=== PATIENT | male | born 1955 | race Caucasian/White ===

== ENCOUNTER 2020-08-08 15:14 | Inpatient (IN) ==
[2020-08-08] MEDS ORDERED: ONDANSETRON 4 MG/2 ML VIAL IV PRN ×2 (15:34→17:16)
[2020-08-08] MEDS ORDERED: METOPROLOL TARTRATE 5 MG/5 ML VIAL IV STA (15:34)
[2020-08-08] MEDS ORDERED: ENOXAPARIN 100 MG/ML SYRINGE SUBCUT STA (15:34)
[2020-08-08] MEDS ORDERED: ASPIRIN 325 MG TABLET PO STA (15:34)
[2020-08-08] MEDS ORDERED: MORPHINE 4 MG/1 ML VIAL IV PRN (15:34)
[2020-08-08] MEDS ORDERED: NITROGLYCERIN 2% OINT 1 INCH/GM PACK TOP STA (15:34)
[2020-08-08 15:52] LABS: Basophils % 0.2 % (0.0-0.8); Eosinophils # 0.1 10*3/uL (0.0-0.87); Eosinophils % 1.9 % (0.00-10.9); Hematocrit 36.8 VOL% (42.0-52.0); Hemoglobin 12.2 GM/DL (14.0-18.0); Immature Granulocytes % 0.3 %; Immature Granulocytes Absolute 0.02 #; Lymphocytes # 1.2 10*3/uL (1.4-4.0); Mean Corpuscular HGB Conc 33.2 GM/DL (32-36); Mean Corpuscular Volume 87.8 FL (87-102); Mean Platelet Volume 10.5 FL (9.6-12.0); Monocytes % 4.3 % (1.7-12.7); Neutrophils % 73.3 % (38.7-73.9); Platelet Count 90 T/CUMM (130-400); Red Blood Count 4.19 MC/CUMM (3.8-5.5); Red Cell Distribution Width 15.3 % (9.3-17.3); White Blood Count 5.9 T/CUMM (4-12)
[2020-08-08 16:12] LABS: Alanine Aminotransferase 211 U/L (16-61); Albumin 3.5 G/DL (3.4-5.0); Alkaline Phosphatase 207 U/L (45-117); Aspartate Amino Transferase 121 U/L (0-37); Bilirubin,Total < 0.39 MG/DL (0.2-1.0); Blood Urea Nitrogen 23 MG/DL (7-18); Calcium 9.1 MG/DL (8.5-10.1); Estimated Glom Filtration Rate 105 ML/MIN; Glucose 206 MG/DL (74-106); Osmolality,Calculated 284.7 MOS/KG (273-304); Total Protein 7.7 G/DL (6.4-8.3)
[2020-08-08 16:31] LABS: INR 0.9; Partial Thromboplastin Time 21.9 SECS (23.9-33.8)
[2020-08-08 16:41] LABS: Platelet Estimate Decreased
[2020-08-08] MEDS ORDERED: GLUCAGON 1 MG VIAL IM PRN (17:16)
[2020-08-08] MEDS ORDERED: DEXTROSE 50% 25 GM/50 ML VIAL IV PRN (17:16)
[2020-08-08] MEDS ORDERED: ACETAMINOPHEN 325 MG TABLET PO PRN (17:16)
[2020-08-08] MEDS: INSULIN LISPRO 100 UNIT/ML SUBCUT SCH ×2 (17:37→20:42)
[2020-08-08] MEDS: SODIUM CHLORIDE 0.9% 1,000 ML IV SCH (17:52)
[2020-08-08] MEDS: DOCUSATE SODIUM 100 MG CAPSULE PO SCH (20:42)
[2020-08-08] MEDS ORDERED: ALBUTEROL/IPRATROPIUM 3 ML NEB RESP TX PRN (23:01)
[2020-08-08] MEDS ORDERED: METOPROLOL TARTRATE 25 MG TABLET PO ONE (23:01)
[2020-08-09] MEDS: SODIUM CHLORIDE 0.9% 1,000 ML IV SCH ×2 (02:33→11:30)
[2020-08-09 05:58] LABS: Basophils % 0.3 % (0.0-0.8); Eosinophils # 0.1 10*3/uL (0.0-0.87); Eosinophils % 0.5 % (0.00-10.9); Hematocrit 36.1 VOL% (42.0-52.0); Immature Granulocytes % 0.6 %; Immature Granulocytes Absolute 0.07 #; Lymphocytes # 1.2 10*3/uL (1.4-4.0); Lymphocytes % 10.3 % (21.2-54.2); Mean Corpuscular HGB Conc 33.2 GM/DL (32-36); Mean Corpuscular Volume 87.4 FL (87-102); Mean Platelet Volume 10.9 FL (9.6-12.0); Monocytes % 4.6 % (1.7-12.7); Neutrophils % 83.7 % (38.7-73.9); Platelet Count 265 T/CUMM (130-400); Red Blood Count 4.13 MC/CUMM (3.8-5.5); Red Cell Distribution Width 15.3 % (9.3-17.3); White Blood Count 11.8 T/CUMM (4-12)
[2020-08-09 06:20] LABS: Albumin 3.1 G/DL (3.4-5.0); Calcium 8.4 MG/DL (8.5-10.1); Osmolality,Calculated 286.7 MOS/KG (273-304); Total Protein 6.8 G/DL (6.4-8.3)
[2020-08-09 07:09] LABS: Hepatitis B Core IgM Quant 0.09 Index; Hepatitis B Surface Ag Quant < 0.10 Index; Hepatitis B Surface Ag Result Negative (Negative); Hepatitis C Virus Ab Quant 0.02 Index; Hepatitis C Virus Ab Result Negative (Negative)
[2020-08-09] MEDS ORDERED: diphenhydrAMINE CAP 25 MG CAPSULE PO ONE (08:16)
[2020-08-09] MEDS ORDERED: DIAZEPAM 5 MG TABLET PO ONE (08:16)
[2020-08-09] MEDS ORDERED: HEPARIN/NACL 0.9% 2 UNITS/ML 1,000 ML IV ONE (08:24)
[2020-08-09] MEDS ORDERED: LIDOCAINE 1% 20 ML VIAL ONE (08:24)
[2020-08-09] MEDS ORDERED: METOPROLOL TARTRATE 25 MG TABLET PO SCH (09:00)
[2020-08-09] MEDS: ASPIRIN EC 81 MG TABLET PO SCH (09:00)
[2020-08-09] MEDS: PANTOPRAZOLE 40 MG TABLET PO SCH (09:00)
[2020-08-09] MEDS: INSULIN LISPRO 100 UNIT/ML SUBCUT SCH ×4 (09:00→20:39)
[2020-08-09] MEDS: DOCUSATE SODIUM 100 MG CAPSULE PO SCH ×2 (09:01→20:39)
[2020-08-09 09:14] LABS: % Iron Saturation 9.5 % (18-50)
[2020-08-09] MEDS ORDERED: MIDAZOLAM 2 MG/2 ML VIAL ONE (09:19)
[2020-08-09] MEDS ORDERED: fentaNYL 100 MCG/2 ML VIAL ONE (09:19)
[2020-08-09] MEDS ORDERED: MORPHINE 4 MG/1 ML VIAL IV PRN (10:00)
[2020-08-09] MEDS ORDERED: ACETAMINOPHEN 325 MG TABLET PO PRN (10:00)
[2020-08-09] MEDS ORDERED: ZALEPLON 5 MG CAPSULE PO PRN (10:00)
[2020-08-09] MEDS ORDERED: NITROGLYCERIN DRIP 50 MG/250 ML BOTTLE IV PRN (10:04)
[2020-08-09] MEDS: POTASSIUM CHLORIDE 20 MEQ TABLET PO SCH ×2 (11:00→20:39)
[2020-08-09] MEDS ORDERED: DEXTROSE 50% 25 GM/50 ML VIAL IV PRN (12:33)
[2020-08-09] MEDS ORDERED: GLUCAGON 1 MG VIAL IM PRN (12:33)
[2020-08-09] MEDS ORDERED: METOPROLOL TARTRATE 5 MG/5 ML VIAL IV PRN (13:41)
[2020-08-09] MEDS: INSULIN GLARGINE 100 UNIT/ML SUBCUT SCH (14:15)
[2020-08-09] MEDS: FUROSEMIDE INJ 100 MG in SODIUM CHLORIDE 0.9% 90 ML IV SCH (14:45)
[2020-08-09 14:59] LABS: Bilirubin,Urine Negative (Negative); Blood, Urine Small mg/dL (Negative); Glucose,Urine (UA) >=500 mg/dL (Negative); Hyaline Casts,Urine 1 /LPF (0-3); Ketones,Urine 20 mg/dL (Negative); Mucus,Urine Occasional /LPF (Occasional); Nitrite,Urine Negative (Negative); Protein,Urine 30 MG/DL; RBC,Urine 3 /HPF (0-4); Squamous Epithelial Cell,Urine Occasional /HPF (0-10); Urine Appearance CLEAR (Clear); Urine Color Yellow (Yellow); Urine Specific Gravity 1.032 (1.001-1.035); Urine Urobilinogen < 2.0 EU/DL (0.2-1.0); WBC,Urine <1 /HPF (0-6)
[2020-08-09] MEDS: METOPROLOL TARTRATE 5 MG/5 ML VIAL IV SCH ×3 (17:07→17:40)
[2020-08-09] MEDS ORDERED: HEPARIN 5,000 UNIT/1 ML VIAL IV ONE (17:12)
[2020-08-09] MEDS: carvediloL 6.25 MG TABLET PO SCH ×2 (17:15→20:39)
[2020-08-09] MEDS ORDERED: DIAZEPAM 5 MG TABLET PO PRN (17:16)
[2020-08-09] MEDS: HEPARIN DRIP 25,000 UNITS/500 ML PREMIX IV SCH (17:40)
[2020-08-09] MEDS: SACUBITRIL/VALSARTAN 49-51 MG TABLET PO SCH (20:39)
[2020-08-09] MEDS: MAGNESIUM OXIDE 400 MG TABLET PO SCH (20:40)
[2020-08-09] MEDS ORDERED: carvediloL 3.125 MG TABLET PO SCH (21:00)
[2020-08-09] MEDS ORDERED: ROSUVASTATIN 20 MG TABLET PO SCH (21:00)
[2020-08-10] MEDS: SODIUM CHLORIDE 0.9% 1,000 ML IV SCH ×2 (05:30→07:30)
[2020-08-10] MEDS: FUROSEMIDE INJ 100 MG in SODIUM CHLORIDE 0.9% 90 ML IV SCH (05:56)
[2020-08-10 06:50] LABS: Basophils # 0.1 10*3/uL (0.0-0.2); Basophils % 0.5 % (0.0-0.8); Eosinophils # 0.1 10*3/uL (0.0-0.87); Eosinophils % 0.5 % (0.00-10.9); Hemoglobin 13.2 GM/DL (14.0-18.0); Immature Granulocytes % 0.5 %; Immature Granulocytes Absolute 0.06 #; Lymphocytes # 1.1 10*3/uL (1.4-4.0); Lymphocytes % 9.8 % (21.2-54.2); Mean Corpuscular HGB Conc 33.8 GM/DL (32-36); Mean Corpuscular Volume 86.5 FL (87-102); Mean Platelet Volume 9.9 FL (9.6-12.0); Monocytes % 6.3 % (1.7-12.7); Neutrophils % 82.4 % (38.7-73.9); Platelet Count 241 T/CUMM (130-400); Red Blood Count 4.51 MC/CUMM (3.8-5.5); Red Cell Distribution Width 15.1 % (9.3-17.3); White Blood Count 11.1 T/CUMM (4-12)
[2020-08-10 07:11] LABS: Albumin 2.5 G/DL (3.4-5.0); Bilirubin,Total 0.6 MG/DL (0.2-1.0); Calcium 8.2 MG/DL (8.5-10.1); Osmolality,Calculated 279.5 MOS/KG (273-304); Total Protein 6.6 G/DL (6.4-8.3)
[2020-08-10] MEDS ORDERED: POTASSIUM CHLORIDE 20 MEQ TABLET PO ONE ×2 (07:17→08:00)
[2020-08-10] MEDS: INSULIN GLARGINE 100 UNIT/ML SUBCUT SCH (08:00)
[2020-08-10] MEDS: INSULIN LISPRO 100 UNIT/ML SUBCUT SCH ×4 (08:00→21:09)
[2020-08-10] MEDS: POTASSIUM CHLORIDE 20 MEQ TABLET PO SCH ×2 (08:45→21:09)
[2020-08-10] MEDS: SACUBITRIL/VALSARTAN 49-51 MG TABLET PO SCH ×2 (08:45→21:09)
[2020-08-10] MEDS: PANTOPRAZOLE 40 MG TABLET PO SCH (08:45)
[2020-08-10] MEDS: DOCUSATE SODIUM 100 MG CAPSULE PO SCH ×2 (08:45→21:09)
[2020-08-10] MEDS: carvediloL 6.25 MG TABLET PO SCH ×2 (08:45→21:09)
[2020-08-10] MEDS: MAGNESIUM OXIDE 400 MG TABLET PO SCH ×2 (08:45→21:09)
[2020-08-10] MEDS: ASPIRIN EC 81 MG TABLET PO SCH (08:45)
[2020-08-10] MEDS ORDERED: FUROSEMIDE 40 MG TABLET PO SCH (09:00)
[2020-08-10] MEDS: HEPARIN DRIP 25,000 UNITS/500 ML PREMIX IV SCH (17:30)
[2020-08-10] MEDS ORDERED: HEPARIN 5,000 UNIT/1 ML VIAL IV PRN (18:10)
[2020-08-11 04:11] LABS: Basophils % 0.5 % (0.0-0.8); Eosinophils # 0.3 10*3/uL (0.0-0.87); Eosinophils % 3.7 % (0.00-10.9); Hematocrit 35.3 VOL% (42.0-52.0); Hemoglobin 11.8 GM/DL (14.0-18.0); Immature Granulocytes % 0.5 %; Immature Granulocytes Absolute 0.04 #; Lymphocytes # 0.9 10*3/uL (1.4-4.0); Lymphocytes % 12.3 % (21.2-54.2); Mean Corpuscular HGB Conc 33.4 GM/DL (32-36); Mean Corpuscular Volume 87.4 FL (87-102); Mean Platelet Volume 10.6 FL (9.6-12.0); Platelet Count 235 T/CUMM (130-400); Red Blood Count 4.04 MC/CUMM (3.8-5.5); Red Cell Distribution Width 14.7 % (9.3-17.3); White Blood Count 7.3 T/CUMM (4-12)
[2020-08-11 04:30] LABS: Osmolality,Calculated 279.7 MOS/KG (273-304)
[2020-08-11 04:35] LABS: Albumin 2.3 G/DL (3.4-5.0); Bilirubin,Total 0.7 MG/DL (0.2-1.0); Calcium 8.1 MG/DL (8.5-10.1); Osmolality,Calculated 281.5 MOS/KG (273-304); Total Protein 6.1 G/DL (6.4-8.3)
[2020-08-11] MEDS: SODIUM CHLORIDE 0.9% 1,000 ML IV SCH ×3 (05:22→15:28)
[2020-08-11 05:34] LABS: ABG Base Excess -0.7 MMOL/L (-2.5-2.5); ABG HCO3 23.8 MMOL/L (20-26); ABG Oxygen Saturation 96.1 % (95-100); ABG PH 7.444 (7.35-7.45); ABG PO2 76.9 MM HG (80-95); ABG TCO2 19.7 MMOL/L (23-27)
[2020-08-11] MEDS ORDERED: FUROSEMIDE 40 MG/4 ML VIAL IV ONE (07:49)
[2020-08-11] MEDS: INSULIN LISPRO 100 UNIT/ML SUBCUT SCH ×4 (07:58→20:57)
[2020-08-11] MEDS: INSULIN GLARGINE 100 UNIT/ML SUBCUT SCH (08:27)
[2020-08-11] MEDS: SPIRONOLACTONE 25 MG TABLET PO SCH (08:28)
[2020-08-11] MEDS: DOCUSATE SODIUM 100 MG CAPSULE PO SCH ×2 (08:32→20:57)
[2020-08-11] MEDS: POTASSIUM CHLORIDE 20 MEQ TABLET PO SCH ×2 (08:32→20:57)
[2020-08-11] MEDS: SACUBITRIL/VALSARTAN 49-51 MG TABLET PO SCH ×2 (08:32→20:57)
[2020-08-11] MEDS: carvediloL 6.25 MG TABLET PO SCH ×2 (08:32→20:57)
[2020-08-11] MEDS: CHLORHEXIDINE 0.12% ORAL RINSE 60 ML BOTTLE SWISH/SPIT SCH ×2 (08:32→20:57)
[2020-08-11] MEDS: MAGNESIUM OXIDE 400 MG TABLET PO SCH ×2 (08:32→20:57)
[2020-08-11] MEDS: ASPIRIN EC 81 MG TABLET PO SCH (08:32)
[2020-08-11] MEDS: PANTOPRAZOLE 40 MG TABLET PO SCH (08:32)
[2020-08-11] MEDS: BENZONATATE 100 MG CAPSULE PO SCH ×2 (08:35→20:57)
[2020-08-11] MEDS: HEPARIN DRIP 25,000 UNITS/500 ML PREMIX IV SCH ×2 (12:13→19:00)
[2020-08-11] MEDS: CHLORHEXIDINE 4% SOLN 118 ML BOTTLE TOP SCH ×2 (15:27→20:56)
[2020-08-12] MEDS: SODIUM CHLORIDE 0.9% 1,000 ML IV SCH ×2 (00:25→19:41)
[2020-08-12 03:13] LABS: Basophils % 0.5 % (0.0-0.8); Eosinophils # 0.5 10*3/uL (0.0-0.87); Eosinophils % 7.4 % (0.00-10.9); Hematocrit 38.1 VOL% (42.0-52.0); Hemoglobin 12.5 GM/DL (14.0-18.0); Immature Granulocytes % 0.5 %; Immature Granulocytes Absolute 0.03 #; Lymphocytes # 1.3 10*3/uL (1.4-4.0); Mean Corpuscular HGB Conc 32.8 GM/DL (32-36); Mean Corpuscular Volume 87.6 FL (87-102); Mean Platelet Volume 10.3 FL (9.6-12.0); Monocytes % 8.5 % (1.7-12.7); Neutrophils % 62.1 % (38.7-73.9); Platelet Count 271 T/CUMM (130-400); Red Blood Count 4.35 MC/CUMM (3.8-5.5); Red Cell Distribution Width 14.6 % (9.3-17.3); White Blood Count 6.4 T/CUMM (4-12)
[2020-08-12 03:46] LABS: Albumin 2.3 G/DL (3.4-5.0); Bilirubin,Total 0.7 MG/DL (0.2-1.0); Calcium 8.3 MG/DL (8.5-10.1); Osmolality,Calculated 291.8 MOS/KG (273-304); Total Protein 6.2 G/DL (6.4-8.3)
[2020-08-12] MEDS: CHLORHEXIDINE 4% SOLN 118 ML BOTTLE TOP SCH (04:37)
[2020-08-12] MEDS ORDERED: PAPAVERINE 60 MG/2 ML VIAL ONE (04:55)
[2020-08-12] MEDS ORDERED: VANCOMYCIN 1,000 MG VIAL ONE (04:55)
[2020-08-12] MEDS ORDERED: VANCOMYCIN 500 MG VIAL ONE (04:55)
[2020-08-12] MEDS ORDERED: CEFUROXIME INJ 1,500 MG in SYRINGE 1 EACH IV ONE (05:00)
[2020-08-12] MEDS ORDERED: MIDAZOLAM 10 MG/2 ML VIAL ONE ×2 (06:12→06:13)
[2020-08-12] MEDS ORDERED: SUFentanil 250 MCG/5 ML AMP ONE (06:12)
[2020-08-12] MEDS ORDERED: HEPARIN/NACL 0.9% 2 UNITS/ML 500 ML IV ONE ×3 (06:13→13:50)
[2020-08-12 07:59] LABS: ABG Base Excess -1.7 MMOL/L (-2.5-2.5); ABG Oxygen Saturation 99.3 % (95-100); ABG PH 7.404 (7.35-7.45); ABG TCO2 19.9 MMOL/L (23-27); Glucose Heart Surgery 190 MG/DL (74-106); Hematocrit Heart Surgery 37.9 PERCENT (42-52); Hemoglobin Heart Surgery 12.3 G/DL (14.0-18.0); Ionized Calcium Arterial 1.11 MMOL/L (1.21-1.46); PH Patient Temp Arterial 7.404; Patient Temperature 37 CELCIUS; Potassium Heart/CVR 4.3 MMOL/L (3.5-5.1); Sodium Heart/CVR 140 MMOL/L (135-145)
[2020-08-12 08:08] LABS: Bilirubin,Urine Negative (Negative); Blood, Urine Large mg/dL (Negative); Glucose,Urine (UA) 50 mg/dL (Negative); Hyaline Casts,Urine 3 /LPF (0-3); Ketones,Urine 5 mg/dL (Negative); Mucus,Urine Occasional /LPF (Occasional); Nitrite,Urine Negative (Negative); Protein,Urine 100 MG/DL; RBC,Urine 994 /HPF (0-4); Squamous Epithelial Cell,Urine Occasional /HPF (0-10); Urine Appearance Slightly Hazy (Clear); Urine Color Yellow (Yellow); Urine Specific Gravity 1.017 (1.001-1.035); Urine Urobilinogen < 2.0 EU/DL (0.2-1.0); WBC,Urine 33 /HPF (0-6)
[2020-08-12] MEDS ORDERED: NITROPRUSSIDE 50 MG/2 ML VIAL ONE (08:34)
[2020-08-12] MEDS ORDERED: POTASSIUM CHLORIDE RIDER 100 ML IV ONE (08:34)
[2020-08-12] MEDS ORDERED: PHENYLEPHRINE DRIP 40 MG/250 ML PREMIX IV ONE (08:34)
[2020-08-12] MEDS ORDERED: ATROPINE 1 MG/10 ML SYRINGE ONE (08:35)
[2020-08-12] MEDS ORDERED: LIDOCAINE 100 MG/5 ML SYRINGE ONE (08:35)
[2020-08-12] MEDS ORDERED: EPINEPHrine 1 MG/10 ML SYRINGE ONE ×2 (08:35→11:43)
[2020-08-12] MEDS ORDERED: ALBUMIN 5% 12.5 GM/250 ML VIAL IV ONE ×2 (08:59)
[2020-08-12 09:13] LABS: Hematocrit Heart Surgery 29.5 PERCENT (42-52); Hemoglobin Heart Surgery 9.5 G/DL (14.0-18.0); PCO2 Patient Temp Venous 35.9 MM HG; PH Patient Temp Venous 7.448; Potassium Heart/CVR 4.7 MMOL/L (3.5-5.1); VBG Base Excess 1.1 MEQ/L (0-4); VBG HCO3 24.9 MEQ/L (24-28); VBG Oxygen Saturation 71.3 %; VBG PCO2 37.7 MMHG (41-51); VBG PH 7.433; VBG PO2 36.4 MMHG (17-40)
[2020-08-12 09:50] LABS: Hematocrit Heart Surgery 32.8 PERCENT (42-52); Hemoglobin Heart Surgery 10.6 G/DL (14.0-18.0); PCO2 Patient Temp Venous 33.5 MM HG; PH Patient Temp Venous 7.458; PO2 Patient Temp Venous 34.1 MM HG; Potassium Heart/CVR 4.3 MMOL/L (3.5-5.1); VBG Base Excess 0.4 MEQ/L (0-4); VBG HCO3 24.3 MEQ/L (24-28); VBG PCO2 36.9 MMHG (41-51); VBG PH 7.429; VBG PO2 39.3 MMHG (17-40)
[2020-08-12 10:18] LABS: Hematocrit Heart Surgery 33.2 PERCENT (42-52); Hemoglobin Heart Surgery 10.7 G/DL (14.0-18.0); PCO2 Patient Temp Venous 35.6 MM HG; PH Patient Temp Venous 7.455; Potassium Heart/CVR 4.7 MMOL/L (3.5-5.1); VBG Base Excess 1.4 MEQ/L (0-4); VBG HCO3 25.1 MEQ/L (24-28); VBG Oxygen Saturation 69.6 %; VBG PCO2 35.6 MMHG (41-51); VBG PH 7.455
[2020-08-12 11:05] LABS: Hematocrit Heart Surgery 31.8 PERCENT (42-52); Hemoglobin Heart Surgery 10.3 G/DL (14.0-18.0); PCO2 Patient Temp Venous 35.3 MM HG; PH Patient Temp Venous 7.437; PO2 Patient Temp Venous 30.9 MM HG; Potassium Heart/CVR 4.1 MMOL/L (3.5-5.1); VBG HCO3 23.8 MEQ/L (24-28); VBG Oxygen Saturation 60.2 %; VBG PCO2 35.3 MMHG (41-51); VBG PH 7.437; VBG PO2 30.9 MMHG (17-40)
[2020-08-12] MEDS ORDERED: PROTAMINE SULFATE 250 MG/25 ML VIAL IV ONE (11:42)
[2020-08-12] MEDS ORDERED: SODIUM BICARBONATE 50 MEQ/50 ML VIAL IV ONE (11:42)
[2020-08-12] MEDS ORDERED: LIDOCAINE 2% 5 ML VIAL ONE ×2 (11:42→13:49)
[2020-08-12] MEDS ORDERED: MANNITOL 100 GM/500 ML BAG IV ONE (11:42)
[2020-08-12] MEDS ORDERED: ALBUMIN 25% 25 GM/100 ML VIAL IV ONE (11:42)
[2020-08-12] MEDS ORDERED: DEXTROSE 5% KCL 20 MEQ 20 MEQ/1,000 ML BAG IV ONE (11:42)
[2020-08-12] MEDS ORDERED: HEPARIN 10,000 UNIT/10 ML VIAL ONE (11:43)
[2020-08-12] MEDS ORDERED: PROTAMINE SULFATE 50 MG/5 ML VIAL IV ONE (11:43)
[2020-08-12] MEDS ORDERED: methylPREDNISolone SOD SUC 1,000 MG/8 ML VIAL ONE (11:43)
[2020-08-12] MEDS ORDERED: MAGNESIUM SULFATE 5 GM/10 ML VIAL IV ONE (11:43)
[2020-08-12] MEDS ORDERED: FUROSEMIDE 20 MG/2 ML VIAL ONE (11:43)
[2020-08-12 11:56] LABS: ABG Base Excess 0.8 MMOL/L (-2.5-2.5); ABG HCO3 25.2 MMOL/L (20-26); ABG Oxygen Saturation 98.8 % (95-100); ABG PCO2 39.5 MM HG (35-48); ABG PH 7.415 (7.35-7.45); ABG TCO2 22.9 MMOL/L (23-27); Glucose Heart Surgery 254 MG/DL (74-106); Hematocrit Heart Surgery 32.2 PERCENT (42-52); Hemoglobin Heart Surgery 10.4 G/DL (14.0-18.0); Ionized Calcium Arterial 1.33 MMOL/L (1.21-1.46); PCO2 Patient Temp Arterial 39.5 MMHG; PH Patient Temp Arterial 7.415; Patient Temperature 37 CELCIUS; Potassium Heart/CVR 3.5 MMOL/L (3.5-5.1); Sodium Heart/CVR 144 MMOL/L (135-145)
[2020-08-12] MEDS ORDERED: AMIODARONE 450 MG/9 ML VIAL IV ONE ×2 (12:17→22:19)
[2020-08-12] MEDS ORDERED: DOBUTamine 500 MG/250 ML PREMIX IV ONE ×2 (12:17→13:49)
[2020-08-12] MEDS ORDERED: EPINEPHrine 1 MG/ML VIAL ONE ×2 (12:31→13:51)
[2020-08-12] MEDS: LACTATED RINGERS 1,000 ML IV PRN ×3 (13:00→16:00)
[2020-08-12] MEDS: ALBUMIN 5% 12.5 GM in PREMIX 1 EACH IV PRN ×3 (13:00→17:32)
[2020-08-12] MEDS: SODIUM CHLORIDE 0.45% 1,000 ML IV SCH ×2 (13:00→15:04)
[2020-08-12] MEDS: DOBUTamine 500 MG/250 ML PREMIX IV PRN (13:00)
[2020-08-12] MEDS: PHENYLEPHRINE DRIP 40 MG/250 ML PREMIX IV PRN ×3 (13:00→20:46)
[2020-08-12] MEDS ORDERED: NITROPRUSSIDE 100 MG in DEXTROSE 5% 250 ML IV PRN (13:08)
[2020-08-12] MEDS ORDERED: MORPHINE 10 MG/1 ML VIAL IV PRN (13:08)
[2020-08-12] MEDS ORDERED: MAGNESIUM SULF RIDER 2 GM in PREMIX 1 EACH IV PRN (13:08)
[2020-08-12] MEDS ORDERED: VECURONIUM 10 MG VIAL IV PRN ×2 (13:08)
[2020-08-12] MEDS ORDERED: MIDAZOLAM 10 MG/2 ML VIAL IV PRN (13:08)
[2020-08-12] MEDS ORDERED: LACTATED RINGERS 250 ML IV PRN (13:08)
[2020-08-12] MEDS ORDERED: DEXTROSE 50% 25 GM/50 ML VIAL IV PRN (13:08)
[2020-08-12] MEDS ORDERED: MAGNESIUM SULF RIDER 4 GM in PREMIX 1 EACH IV PRN (13:08)
[2020-08-12] MEDS ORDERED: CHLORHEXIDINE 4% SOLN 118 ML BOTTLE TOP PRN (13:08)
[2020-08-12] MEDS ORDERED: ACETAMINOPHEN 650 MG SUPP RECTAL PRN (13:08)
[2020-08-12] MEDS ORDERED: MORPHINE 4 MG/1 ML VIAL IV PRN (13:08)
[2020-08-12] MEDS ORDERED: INSULIN REGULAR 100 UNIT/ML IV ONE ×2 (13:08→17:00)
[2020-08-12] MEDS ORDERED: CALCIUM CHLORIDE 1,000 MG/10 ML SYRINGE IV PRN (13:08)
[2020-08-12] MEDS ORDERED: MIDAZOLAM 2 MG/2 ML VIAL IV PRN (13:08)
[2020-08-12 13:13] LABS: ABG Base Excess -1.2 MMOL/L (-2.5-2.5); ABG HCO3 23.4 MMOL/L (20-26); ABG Oxygen Saturation 97.9 % (95-100); ABG PCO2 40.5 MM HG (35-48); ABG PH 7.378 (7.35-7.45); ABG TCO2 21.5 MMOL/L (23-27); Glucose Heart Surgery 287 MG/DL (74-106); Hematocrit Heart Surgery 33.8 PERCENT (42-52); Potassium Heart/CVR 4.1 MMOL/L (3.5-5.1)
[2020-08-12 13:17] LABS: Basophils # 0.1 10*3/uL (0.0-0.2); Basophils % 0.2 % (0.0-0.8); Eosinophils # 0.2 10*3/uL (0.0-0.87); Eosinophils % 0.7 % (0.00-10.9); Hematocrit 32.4 VOL% (42.0-52.0); Hemoglobin 10.9 GM/DL (14.0-18.0); Immature Granulocytes % 0.8 %; Immature Granulocytes Absolute 0.18 #; Lymphocytes % 9.6 % (21.2-54.2); Mean Corpuscular HGB Conc 33.6 GM/DL (32-36); Monocytes % 4.7 % (1.7-12.7); Platelet Count 244 T/CUMM (130-400); Red Blood Count 3.68 MC/CUMM (3.8-5.5); Red Cell Distribution Width 14.8 % (9.3-17.3); White Blood Count 21.3 T/CUMM (4-12)
[2020-08-12 13:29] LABS: INR 1.2; PT Patient Result 12.5 SECS (9.8-11.9); Partial Thromboplastin Time 27.9 SECS (23.9-33.8)
[2020-08-12] MEDS ORDERED: AMIODARONE INJ 450 MG in DEXTROSE 5% 241 ML IV SCH (13:30)
[2020-08-12 13:36] LABS: CKMB % 7.8 %
[2020-08-12 13:39] LABS: Albumin 2.3 G/DL (3.4-5.0); Bilirubin,Total 1.5 MG/DL (0.2-1.0); Calcium 9.4 MG/DL (8.5-10.1); Osmolality,Calculated 297.7 MOS/KG (273-304); Total Protein 5.3 G/DL (6.4-8.3)
[2020-08-12 13:44] LABS: Troponin I 7.63 NG/ML (0.00-0.045)
[2020-08-12] MEDS ORDERED: CALCIUM CHLORIDE 1,000 MG/10 ML VIAL IV ONE (13:49)
[2020-08-12] MEDS ORDERED: SEVOFLURANE 1 UNIT/15 MINUTE INH ONE (13:50)
[2020-08-12] MEDS ORDERED: MINERAL OIL/PETROLATUM OPH OINT 3.5 GM TUBE ONE (13:51)
[2020-08-12] MEDS ORDERED: ePHEDrine 50 MG/ML VIAL ONE ×2 (13:51)
[2020-08-12] MEDS ORDERED: AMIODARONE 150 MG/3 ML VIAL ONE (13:51)
[2020-08-12] MEDS ORDERED: ETOMIDATE 40 MG/20 ML VIAL IV ONE (13:52)
[2020-08-12] MEDS ORDERED: NITROGLYCERIN DRIP 50 MG/250 ML BOTTLE IV ONE (13:52)
[2020-08-12] MEDS ORDERED: AMINOCAPROIC ACID 5,000 MG/20 ML VIAL ONE (13:52)
[2020-08-12] MEDS ORDERED: PHENYLEPHRINE 10 MG/1 ML VIAL IV ONE ×2 (13:52)
[2020-08-12] MEDS ORDERED: PHENYLEPHRINE 1 MG/10 ML SYRINGE IV ONE (13:52)
[2020-08-12] MEDS ORDERED: SODIUM CHLORIDE 0.9% 2,000 ML IV ONE (13:53)
[2020-08-12] MEDS ORDERED: SODIUM CHLORIDE 0.9% 100 ML IV ONE (13:53)
[2020-08-12] MEDS ORDERED: ROCURONIUM 100 MG/10 ML VIAL IV ONE (13:53)
[2020-08-12] MEDS ORDERED: LACTATED RINGERS 2,000 ML IV ONE (13:53)
[2020-08-12] MEDS ORDERED: SUCCINYLCHOLINE 200 MG/10 ML VIAL ONE (13:53)
[2020-08-12] MEDS ORDERED: SODIUM CHLORIDE 0.9% 750 ML IV ONE (13:53)
[2020-08-12 14:35] LABS: ABG Base Excess -2.8 MMOL/L (-2.5-2.5); ABG HCO3 22.1 MMOL/L (20-26); ABG Oxygen Saturation 99.1 % (95-100); ABG PCO2 42.6 MM HG (35-48); ABG PH 7.338 (7.35-7.45); Glucose Heart Surgery 305 MG/DL (74-106); Hematocrit Heart Surgery 30.2 PERCENT (42-52); Hemoglobin Heart Surgery 9.7 G/DL (14.0-18.0); Potassium Heart/CVR 3.7 MMOL/L (3.5-5.1)
[2020-08-12] MEDS: INSULIN REGULAR DRIP 100 ML IV SCH ×2 (15:05→22:40)
[2020-08-12] MEDS: POTASSIUM CHLORIDE RIDER 20 MEQ in PREMIX 1 EACH IV PRN ×3 (15:38→23:44)
[2020-08-12] MEDS: POTASSIUM CHLORIDE RIDER 10 MEQ in PREMIX 1 EACH IV PRN ×2 (16:36→18:57)
[2020-08-12 17:15] LABS: ABG Base Excess 0.1 MMOL/L (-2.5-2.5); ABG HCO3 24.5 MMOL/L (20-26); ABG Oxygen Saturation 97.9 % (95-100); ABG PCO2 39.5 MM HG (35-48); ABG PH 7.405 (7.35-7.45); ABG TCO2 22.6 MMOL/L (23-27); Glucose Heart Surgery 292 MG/DL (74-106); Hematocrit Heart Surgery 29.5 PERCENT (42-52); Hemoglobin Heart Surgery 9.5 G/DL (14.0-18.0); Potassium Heart/CVR 4.2 MMOL/L (3.5-5.1)
[2020-08-12 18:02] LABS: Hypochromasia 1+; Microcytosis 1+
[2020-08-12 18:15] LABS: ABG Base Excess 0.2 MMOL/L (-2.5-2.5); ABG HCO3 24.7 MMOL/L (20-26); ABG Oxygen Saturation 98.7 % (95-100); ABG PCO2 39.6 MM HG (35-48); ABG PH 7.406 (7.35-7.45); ABG TCO2 22.9 MMOL/L (23-27); Glucose Heart Surgery 261 MG/DL (74-106); Hematocrit Heart Surgery 28.2 PERCENT (42-52); Hemoglobin Heart Surgery 9.1 G/DL (14.0-18.0); Potassium Heart/CVR 3.7 MMOL/L (3.5-5.1)
[2020-08-12] MEDS: INSULIN LISPRO 100 UNIT/ML SUBCUT SCH (19:37)
[2020-08-12] MEDS: DOCUSATE SODIUM 100 MG CAPSULE PO SCH (19:38)
[2020-08-12] MEDS: SPIRONOLACTONE 25 MG TABLET PO SCH (19:38)
[2020-08-12] MEDS: ASPIRIN EC 81 MG TABLET PO SCH (19:38)
[2020-08-12] MEDS: carvediloL 6.25 MG TABLET PO SCH (19:39)
[2020-08-12] MEDS: POTASSIUM CHLORIDE 20 MEQ TABLET PO SCH (19:40)
[2020-08-12] MEDS: SACUBITRIL/VALSARTAN 49-51 MG TABLET PO SCH (19:40)
[2020-08-12] MEDS: MAGNESIUM OXIDE 400 MG TABLET PO SCH (19:40)
[2020-08-12] MEDS: CHLORHEXIDINE 0.12% ORAL RINSE 60 ML BOTTLE SWISH/SPIT SCH ×2 (19:40→20:17)
[2020-08-12] MEDS: INSULIN GLARGINE 100 UNIT/ML SUBCUT SCH (19:40)
[2020-08-12] MEDS: PANTOPRAZOLE 40 MG TABLET PO SCH (19:40)
[2020-08-12] MEDS: BENZONATATE 100 MG CAPSULE PO SCH (19:41)
[2020-08-12] MEDS: CEFUROXIME INJ 1,500 MG in SYRINGE 1 EACH IV SCH (20:18)
[2020-08-12] MEDS: INSULIN REGULAR 100 UNIT/ML IV PRN (21:25)
[2020-08-12] MEDS ORDERED: FUROSEMIDE 40 MG/4 ML VIAL IV PRN (21:27)
[2020-08-12] MEDS ORDERED: DEXMEDETOMIDINE 200 MCG in SODIUM CHLORIDE 0.9% 48 ML IV PRN (21:28)
[2020-08-12] MEDS: AMIODARONE INJ 450 MG in DEXTROSE 5% 241 ML IV SCH (22:36)
[2020-08-12 22:37] LABS: Hematocrit 29.6 VOL% (42.0-52.0)
[2020-08-12 23:35] LABS: CKMB % 5.2 %
[2020-08-12 23:36] LABS: Troponin I 19.6 NG/ML (0.00-0.045)
[2020-08-13] MEDS: POTASSIUM CHLORIDE RIDER 10 MEQ in PREMIX 1 EACH IV PRN ×2 (00:36→09:19)
[2020-08-13 01:38] LABS: ABG HCO3 25.3 MMOL/L (20-26); ABG Oxygen Saturation 98.8 % (95-100); ABG PCO2 35.5 MM HG (35-48); ABG TCO2 22.4 MMOL/L (23-27); Glucose Heart Surgery 75 MG/DL (74-106); Hematocrit Heart Surgery 30.5 PERCENT (42-52); Hemoglobin Heart Surgery 9.9 G/DL (14.0-18.0); Potassium Heart/CVR 4.5 MMOL/L (3.5-5.1)
[2020-08-13 02:16] LABS: ABG Base Excess 0.5 MMOL/L (-2.5-2.5); ABG HCO3 24.9 MMOL/L (20-26); ABG Oxygen Saturation 98.5 % (95-100); ABG PCO2 38.6 MM HG (35-48); ABG PH 7.417 (7.35-7.45); ABG TCO2 22.7 MMOL/L (23-27); Glucose Heart Surgery 91 MG/DL (74-106); Hematocrit Heart Surgery 29.9 PERCENT (42-52); Hemoglobin Heart Surgery 9.7 G/DL (14.0-18.0); Potassium Heart/CVR 4.5 MMOL/L (3.5-5.1)
[2020-08-13 04:15] LABS: ABG Base Excess -1.1 MMOL/L (-2.5-2.5); ABG HCO3 23.3 MMOL/L (20-26); ABG PCO2 37.8 MM HG (35-48); ABG PH 7.408 (7.35-7.45); ABG PO2 132.9 MM HG (80-95); ABG TCO2 24.5 MMOL/L (23-27); Glucose Heart Surgery 131 MG/DL (74-106); Hemoglobin Heart Surgery 9.9 G/DL (14.0-18.0); Potassium Heart/CVR 4.5 MMOL/L (3.5-5.1)
[2020-08-13 04:37] LABS: Basophils % 0.1 % (0.0-0.8); Hematocrit 29.1 VOL% (42.0-52.0); Hemoglobin 9.6 GM/DL (14.0-18.0); Immature Granulocytes % 0.4 %; Immature Granulocytes Absolute 0.06 #; Lymphocytes # 0.8 10*3/uL (1.4-4.0); Mean Platelet Volume 10.5 FL (9.6-12.0); Monocytes % 7.3 % (1.7-12.7); Neutrophils % 87.2 % (38.7-73.9); Platelet Count 174 T/CUMM (130-400); Red Blood Count 3.27 MC/CUMM (3.8-5.5); Red Cell Distribution Width 14.8 % (9.3-17.3); White Blood Count 16.3 T/CUMM (4-12)
[2020-08-13 04:51] LABS: Calcium 8.6 MG/DL (8.5-10.1); Osmolality,Calculated 289.8 MOS/KG (273-304)
[2020-08-13 04:56] LABS: Albumin 2.6 G/DL (3.4-5.0); Bilirubin,Direct 0.39 MG/DL (0.0-0.20); Bilirubin,Total 0.9 MG/DL (0.2-1.0); Calcium 8.4 MG/DL (8.5-10.1); Osmolality,Calculated 293.6 MOS/KG (273-304); Total Protein 5.3 G/DL (6.4-8.3)
[2020-08-13] MEDS: ALBUMIN 5% 12.5 GM in PREMIX 1 EACH IV PRN ×3 (05:06→11:11)
[2020-08-13 05:13] LABS: Band Neutrophils 4 % (0-10); Hypochromasia Slight; Lymphocytes 6 % (20-55); Platelet Estimate Normal; Segmented Neutrophils 83 % (50-85); Total Cells Counted 100
[2020-08-13 05:26] LABS: ABG Base Excess 0.1 MMOL/L (-2.5-2.5); ABG HCO3 24.5 MMOL/L (20-26); ABG Oxygen Saturation 98.1 % (95-100); ABG PCO2 38.9 MM HG (35-48); ABG PH 7.409 (7.35-7.45); ABG TCO2 22.6 MMOL/L (23-27); Glucose Heart Surgery 112 MG/DL (74-106); Hemoglobin Heart Surgery 9.4 G/DL (14.0-18.0); Potassium Heart/CVR 4.3 MMOL/L (3.5-5.1)
[2020-08-13 05:27] LABS: CKMB % 5.5 %
[2020-08-13 05:28] LABS: Troponin I 18.2 NG/ML (0.00-0.045)
[2020-08-13] MEDS: LACTATED RINGERS 1,000 ML IV PRN (05:57)
[2020-08-13] MEDS: ASPIRIN 325 MG TABLET PO SCH (09:03)
[2020-08-13] MEDS: KETOROLAC 30 MG/1 ML VIAL IV SCH ×2 (09:04→18:00)
[2020-08-13] MEDS: CEFUROXIME INJ 1,500 MG in SYRINGE 1 EACH IV SCH ×2 (09:10→21:35)
[2020-08-13] MEDS: CHLORHEXIDINE 0.12% ORAL RINSE 60 ML BOTTLE SWISH/SPIT SCH ×2 (09:15→22:06)
[2020-08-13 09:28] LABS: ABG Base Excess -2.9 MMOL/L (-2.5-2.5); ABG PCO2 36.1 MM HG (35-48); ABG PH 7.385 (7.35-7.45); ABG TCO2 19.7 MMOL/L (23-27); Glucose Heart Surgery 131 MG/DL (74-106); Hematocrit Heart Surgery 30.4 PERCENT (42-52); Hemoglobin Heart Surgery 9.8 G/DL (14.0-18.0)
[2020-08-13] MEDS: PHENYLEPHRINE DRIP 40 MG/250 ML PREMIX IV PRN (11:31)
[2020-08-13] MEDS ORDERED: FUROSEMIDE 40 MG/4 ML VIAL IV ONE (11:39)
[2020-08-13] MEDS: ONDANSETRON 4 MG/2 ML VIAL IV PRN ×2 (11:48→18:00)
[2020-08-13 14:30] LABS: CKMB % 5.6 %
[2020-08-13 14:35] LABS: Troponin I 16.6 NG/ML (0.00-0.045)
[2020-08-13 14:35] LABS: Antinuclear Ab, S 2.2 U
[2020-08-13 17:45] LABS: Hematocrit Heart Surgery 32.1 PERCENT (42-52); Hemoglobin Heart Surgery 10.4 G/DL (14.0-18.0); PCO2 Patient Temp Venous 40.8 MM HG; PH Patient Temp Venous 7.326; VBG Base Excess -4.4 MEQ/L (0-4); VBG HCO3 19.8 MEQ/L (24-28); VBG Oxygen Saturation 37.9 %; VBG PCO2 40.8 MMHG (41-51); VBG PH 7.326
[2020-08-13 17:47] LABS: Potassium Heart/CVR 6.2 MMOL/L (3.5-5.1)
[2020-08-13] MEDS ORDERED: FUROSEMIDE 100 MG/10 ML VIAL IV ONE (17:54)
[2020-08-13] MEDS: AMIODARONE INJ 450 MG in DEXTROSE 5% 241 ML IV SCH (17:58)
[2020-08-13] MEDS: INSULIN REGULAR DRIP 100 ML IV SCH (17:58)
[2020-08-13] MEDS: FUROSEMIDE INJ 200 MG in SODIUM CHLORIDE 0.9% 80 ML IV SCH (18:20)
[2020-08-13] MEDS: SODIUM CHLORIDE 0.45% 1,000 ML IV SCH ×2 (18:38)
[2020-08-13] MEDS: DOBUTamine 500 MG/250 ML PREMIX IV PRN (19:57)
[2020-08-13 20:39] LABS: ABG Base Excess -9.1 MMOL/L (-2.5-2.5); ABG HCO3 17.1 MMOL/L (20-26); ABG Oxygen Saturation 95.4 % (95-100); ABG PH 7.339 (7.35-7.45); ABG TCO2 14.2 MMOL/L (23-27); Glucose Heart Surgery 229 MG/DL (74-106); Hematocrit Heart Surgery 33.3 PERCENT (42-52); Hemoglobin Heart Surgery 10.8 G/DL (14.0-18.0)
[2020-08-13 20:42] LABS: Potassium Heart/CVR 6.2 MMOL/L (3.5-5.1)
[2020-08-13] MEDS ORDERED: SODIUM BICARBONATE 50 MEQ/50 ML VIAL IV ONE (20:58)
[2020-08-13] MEDS ORDERED: ROSUVASTATIN 10 MG TABLET PO SCH (21:00)
[2020-08-13] MEDS ORDERED: DEXTROSE 50% 25 GM/50 ML VIAL IV PRN (21:06)
[2020-08-13] MEDS ORDERED: GLUCAGON 1 MG VIAL IM PRN (21:06)
[2020-08-13] MEDS: DEXTROSE 50% 25 GM/50 ML VIAL IV PRN (22:01)
[2020-08-13] MEDS: INSULIN REGULAR 100 UNIT/ML IV PRN (22:03)
[2020-08-14 01:01] LABS: Calcium 7.7 MG/DL (8.5-10.1); Osmolality,Calculated 303.3 MOS/KG (273-304)
[2020-08-14] MEDS: INSULIN REGULAR 100 UNIT/ML SUBCUT SCH ×7 (01:18→20:31)
[2020-08-14] MEDS: KETOROLAC 30 MG/1 ML VIAL IV SCH ×4 (03:53→08:35)
[2020-08-14] MEDS: FUROSEMIDE INJ 200 MG in SODIUM CHLORIDE 0.9% 80 ML IV SCH ×3 (03:56→23:30)
[2020-08-14] MEDS ORDERED: HEPARIN/NACL 0.9% 2 UNITS/ML 500 ML IV ONE (05:07)
[2020-08-14 05:25] LABS: Basophils % 0.2 % (0.0-0.8); Hemoglobin 10.8 GM/DL (14.0-18.0); Immature Granulocytes Absolute 0.19 #; Lymphocytes # 0.8 10*3/uL (1.4-4.0); Mean Corpuscular HGB Conc 33.8 GM/DL (32-36); Mean Corpuscular Volume 88.2 FL (87-102); Monocytes % 7.6 % (1.7-12.7); Neutrophils % 87.2 % (38.7-73.9); Platelet Count 179 T/CUMM (130-400); Red Blood Count 3.63 MC/CUMM (3.8-5.5); White Blood Count 19.5 T/CUMM (4-12)
[2020-08-14 05:47] LABS: Band Neutrophils 3 % (0-10); Lymphocytes 6 % (20-55); Segmented Neutrophils 90 % (50-85); Total Cells Counted 100
[2020-08-14 05:48] LABS: Hypochromasia 1+; Microcytosis 1+; Platelet Estimate Adequate
[2020-08-14 06:03] LABS: Albumin 2.9 G/DL (3.4-5.0); Bilirubin,Direct 0.68 MG/DL (0.0-0.20); Bilirubin,Total 1.2 MG/DL (0.2-1.0); Calcium 7.7 MG/DL (8.5-10.1); Total Protein 5.7 G/DL (6.4-8.3)
[2020-08-14] MEDS ORDERED: KETOROLAC 30 MG/1 ML VIAL IV PRN (06:07)
[2020-08-14] MEDS: AMIODARONE INJ 450 MG in DEXTROSE 5% 241 ML IV SCH ×2 (07:24→20:28)
[2020-08-14] MEDS: ASCORBIC ACID 500 MG TABLET PO SCH ×2 (08:40→20:31)
[2020-08-14] MEDS: THIAMINE 100 MG TABLET PO SCH (08:40)
[2020-08-14] MEDS: MULTIVITAMIN (CENTRUM) TABLET PO SCH (08:40)
[2020-08-14] MEDS: ASPIRIN 325 MG TABLET PO SCH (08:40)
[2020-08-14] MEDS: FOLIC ACID 1 MG TABLET PO SCH (08:40)
[2020-08-14] MEDS: CHLORHEXIDINE 0.12% ORAL RINSE 60 ML BOTTLE SWISH/SPIT SCH ×2 (08:45→21:42)
[2020-08-14] MEDS: INSULIN GLARGINE 100 UNIT/ML SUBCUT SCH (12:25)
[2020-08-14] MEDS: SODIUM CHLORIDE 0.45% 1,000 ML IV SCH ×2 (14:25)
[2020-08-14] MEDS: ESCITALOPRAM 10 MG TABLET PO SCH (20:31)
[2020-08-15] MEDS: INSULIN REGULAR 100 UNIT/ML SUBCUT SCH ×4 (00:19→12:00)
[2020-08-15 04:20] LABS: Basophils % 0.2 % (0.0-0.8); Eosinophils % 0.3 % (0.00-10.9); Hematocrit 32.1 VOL% (42.0-52.0); Hemoglobin 10.9 GM/DL (14.0-18.0); Immature Granulocytes % 1.1 %; Immature Granulocytes Absolute 0.14 #; Lymphocytes # 0.9 10*3/uL (1.4-4.0); Lymphocytes % 7.2 % (21.2-54.2); Mean Corpuscular Volume 87.9 FL (87-102); Mean Platelet Volume 10.6 FL (9.6-12.0); Monocytes % 6.3 % (1.7-12.7); NRBC # 0.05 10*3/uL; Neutrophils % 84.9 % (38.7-73.9); Platelet Count 158 T/CUMM (130-400); Red Blood Count 3.65 MC/CUMM (3.8-5.5); Red Cell Distribution Width 14.9 % (9.3-17.3)
[2020-08-15 04:56] LABS: CKMB % 4.4 %
[2020-08-15 05:01] LABS: Calcium 7.8 MG/DL (8.5-10.1); Osmolality,Calculated 299.6 MOS/KG (273-304)
[2020-08-15 05:02] LABS: Troponin I 7.29 NG/ML (0.00-0.045)
[2020-08-15 05:10] LABS: Albumin 2.9 G/DL (3.4-5.0); Bilirubin,Direct 0.52 MG/DL (0.0-0.20); Bilirubin,Total 0.8 MG/DL (0.2-1.0); Calcium 8.1 MG/DL (8.5-10.1); Osmolality,Calculated 302.4 MOS/KG (273-304); Total Protein 5.7 G/DL (6.4-8.3)
[2020-08-15] MEDS: DOBUTamine 500 MG/250 ML PREMIX IV PRN (07:05)
[2020-08-15] MEDS: POTASSIUM CHLORIDE RIDER 20 MEQ in PREMIX 1 EACH IV PRN (07:50)
[2020-08-15] MEDS: DEXTROSE 50% 25 GM/50 ML VIAL IV PRN (07:50)
[2020-08-15] MEDS: ASPIRIN 325 MG TABLET PO SCH (08:35)
[2020-08-15] MEDS: MULTIVITAMIN (CENTRUM) TABLET PO SCH (08:35)
[2020-08-15] MEDS: THIAMINE 100 MG TABLET PO SCH (08:35)
[2020-08-15] MEDS: FOLIC ACID 1 MG TABLET PO SCH (08:35)
[2020-08-15] MEDS: CHLORHEXIDINE 0.12% ORAL RINSE 60 ML BOTTLE SWISH/SPIT SCH (08:45)
[2020-08-15] MEDS: INSULIN GLARGINE 100 UNIT/ML SUBCUT SCH (09:00)
[2020-08-15] MEDS ORDERED: FUROSEMIDE 40 MG TABLET PO ONE (09:07)
[2020-08-15] MEDS: AMIODARONE INJ 450 MG in DEXTROSE 5% 241 ML IV SCH (10:30)
[2020-08-15] MEDS: ASCORBIC ACID 500 MG TABLET PO SCH (10:30)
[2020-08-15] MEDS: SPIRONOLACTONE 25 MG TABLET PO SCH (10:30)
[2020-08-15] MEDS: carvediloL 3.125 MG TABLET PO SCH (10:30)
[2020-08-15] MEDS ORDERED: INSULIN GLARGINE 100 UNIT/ML SUBCUT SCH (12:00)
[2020-08-15] MEDS: ALBUTEROL/IPRATROPIUM 3 ML NEB RESP TX SCH ×2 (13:10→18:54)
[2020-08-15] MEDS ORDERED: ONDANSETRON 4 MG/2 ML VIAL IV PRN (14:09)
[2020-08-15] MEDS ORDERED: MAGNESIUM SULF RIDER 2 GM in PREMIX 1 EACH IV PRN (14:09)
[2020-08-15] MEDS ORDERED: ALUMINUM/MAGNES/SIMETH MAX STR 30 ML UDCUP PO PRN (14:09)
[2020-08-15] MEDS ORDERED: DEXTROSE 50% 25 GM/50 ML VIAL IV PRN (14:09)
[2020-08-15] MEDS ORDERED: POTASSIUM CHLORIDE 20 MEQ TABLET PO PRN (14:09)
[2020-08-15] MEDS ORDERED: SODIUM CHLOR 0.45% KCL 20 MEQ 20 MEQ/1,000 ML BAG IV SCH (14:09)
[2020-08-15] MEDS ORDERED: MAGNESIUM HYDROXIDE SUSP 30 ML UDCUP PO PRN (14:09)
[2020-08-15] MEDS ORDERED: ZALEPLON 5 MG CAPSULE PO PRN (14:09)
[2020-08-15] MEDS ORDERED: MAGNESIUM SULF RIDER 4 GM in PREMIX 1 EACH IV PRN (14:09)
[2020-08-15] MEDS ORDERED: ACETAMINOPHEN 325 MG TABLET PO PRN (14:09)
[2020-08-15] MEDS ORDERED: GLUCAGON 1 MG VIAL IM PRN (14:09)
[2020-08-15] MEDS: FUROSEMIDE 40 MG TABLET PO SCH (16:10)
[2020-08-16] MEDS: POTASSIUM CHLORIDE 20 MEQ TABLET PO SCH ×2 (00:52→09:47)
[2020-08-16] MEDS: SACUBITRIL/VALSARTAN 49-51 MG TABLET PO SCH ×2 (00:53→09:48)
[2020-08-16] MEDS: ASCORBIC ACID 500 MG TABLET PO SCH ×2 (00:53→09:45)
[2020-08-16] MEDS: DOCUSATE SODIUM 100 MG CAPSULE PO SCH ×2 (00:53→09:44)
[2020-08-16] MEDS: ESCITALOPRAM 10 MG TABLET PO SCH (00:54)
[2020-08-16] MEDS: carvediloL 3.125 MG TABLET PO SCH ×2 (00:54→09:48)
[2020-08-16] MEDS: CHLORHEXIDINE 0.12% ORAL RINSE 60 ML BOTTLE SWISH/SPIT SCH ×2 (00:55→09:49)
[2020-08-16] MEDS: ALBUTEROL/IPRATROPIUM 3 ML NEB RESP TX SCH ×4 (01:49→19:23)
[2020-08-16 05:48] LABS: Basophils % 0.2 % (0.0-0.8); Eosinophils # 0.1 10*3/uL (0.0-0.87); Eosinophils % 0.9 % (0.00-10.9); Hematocrit 32.9 VOL% (42.0-52.0); Hemoglobin 10.8 GM/DL (14.0-18.0); Immature Granulocytes % 1.8 %; Immature Granulocytes Absolute 0.24 #; Lymphocytes # 0.9 10*3/uL (1.4-4.0); Lymphocytes % 6.7 % (21.2-54.2); Mean Corpuscular HGB Conc 32.8 GM/DL (32-36); Mean Corpuscular Volume 89.4 FL (87-102); Mean Platelet Volume 10.6 FL (9.6-12.0); Monocytes % 6.9 % (1.7-12.7); NRBC # 0.04 10*3/uL; Neutrophils % 83.5 % (38.7-73.9); Platelet Count 207 T/CUMM (130-400); Red Blood Count 3.68 MC/CUMM (3.8-5.5); Red Cell Distribution Width 14.8 % (9.3-17.3); White Blood Count 13.1 T/CUMM (4-12)
[2020-08-16 06:11] LABS: Albumin 2.6 G/DL (3.4-5.0); Bilirubin,Total 1.8 MG/DL (0.2-1.0); Calcium 8.4 MG/DL (8.5-10.1); Osmolality,Calculated 295.8 MOS/KG (273-304); Total Protein 5.7 G/DL (6.4-8.3)
[2020-08-16 06:19] LABS: Alanine Aminotransferase 2279 U/L (16-61); Albumin 2.6 G/DL (3.4-5.0); Alkaline Phosphatase 210 U/L (45-117); Aspartate Amino Transferase 796 U/L (0-37); Bilirubin,Indirect 1.4 MG/DL (0.0-1.0); Total Protein 5.5 G/DL (6.4-8.3)
[2020-08-16] MEDS: PANTOPRAZOLE 40 MG TABLET PO SCH (09:44)
[2020-08-16] MEDS: FUROSEMIDE 40 MG TABLET PO SCH ×2 (09:45→17:02)
[2020-08-16] MEDS: THIAMINE 100 MG TABLET PO SCH (09:46)
[2020-08-16] MEDS: MULTIVITAMIN (CENTRUM) TABLET PO SCH (09:47)
[2020-08-16] MEDS: SPIRONOLACTONE 25 MG TABLET PO SCH (09:47)
[2020-08-16] MEDS: FOLIC ACID 1 MG TABLET PO SCH (09:47)
[2020-08-16] MEDS: POLYETHYLENE GLYCOL POWDER 17 GM PACK PO SCH (09:49)
[2020-08-16] MEDS: ASPIRIN 325 MG TABLET PO SCH (09:50)
[2020-08-16] MEDS: BENZONATATE 100 MG CAPSULE PO PRN (18:39)
[2020-08-16] MEDS ORDERED: GLUCAGON 1 MG VIAL IM PRN (21:51)
[2020-08-16] MEDS ORDERED: DEXTROSE 50% 25 GM/50 ML VIAL IV PRN (21:51)
[2020-08-17] MEDS: SACUBITRIL/VALSARTAN 49-51 MG TABLET PO SCH ×3 (00:26→23:22)
[2020-08-17] MEDS: ESCITALOPRAM 10 MG TABLET PO SCH ×2 (00:27→23:21)
[2020-08-17] MEDS: ASCORBIC ACID 500 MG TABLET PO SCH ×3 (00:28→23:23)
[2020-08-17] MEDS: carvediloL 3.125 MG TABLET PO SCH ×3 (00:28→23:25)
[2020-08-17] MEDS: BENZONATATE 100 MG CAPSULE PO PRN ×2 (00:31→23:20)
[2020-08-17] MEDS: DOCUSATE SODIUM 100 MG CAPSULE PO SCH ×3 (00:32→23:26)
[2020-08-17] MEDS: POTASSIUM CHLORIDE 20 MEQ TABLET PO SCH ×3 (00:32→23:27)
[2020-08-17] MEDS: CHLORHEXIDINE 0.12% ORAL RINSE 60 ML BOTTLE SWISH/SPIT SCH ×2 (00:33→08:58)
[2020-08-17] MEDS: INSULIN LISPRO 100 UNIT/ML SUBCUT SCH ×5 (00:37→23:28)
[2020-08-17] MEDS: ALBUTEROL/IPRATROPIUM 3 ML NEB RESP TX SCH ×4 (01:23→19:21)
[2020-08-17 06:40] LABS: Albumin 2.7 G/DL (3.4-5.0); Bilirubin,Total 2.1 MG/DL (0.2-1.0); Calcium 9.1 MG/DL (8.5-10.1); Osmolality,Calculated 300.8 MOS/KG (273-304); Total Protein 6.1 G/DL (6.4-8.3)
[2020-08-17 06:43] LABS: Basophils % 0.3 % (0.0-0.8); Eosinophils # 0.3 10*3/uL (0.0-0.87); Eosinophils % 2.3 % (0.00-10.9); Hemoglobin 11.8 GM/DL (14.0-18.0); Immature Granulocytes % 1.7 %; Immature Granulocytes Absolute 0.22 #; Lymphocytes % 8.2 % (21.2-54.2); Mean Corpuscular HGB Conc 32.8 GM/DL (32-36); Mean Corpuscular Volume 89.8 FL (87-102); Mean Platelet Volume 10.6 FL (9.6-12.0); Monocytes % 8.6 % (1.7-12.7); NRBC # 0.02 10*3/uL; Neutrophils % 78.9 % (38.7-73.9); Platelet Count 279 T/CUMM (130-400); Red Blood Count 4.01 MC/CUMM (3.8-5.5); Red Cell Distribution Width 14.8 % (9.3-17.3); White Blood Count 12.6 T/CUMM (4-12)
[2020-08-17 08:42] LABS: Albumin 2.8 G/DL (3.4-5.0); Alkaline Phosphatase 306 U/L (45-117); Aspartate Amino Transferase 520 U/L (0-37); Bilirubin,Indirect 0.7 MG/DL (0.0-1.0); Total Protein 6.1 G/DL (6.4-8.3)
[2020-08-17 08:43] LABS: Alanine Aminotransferase 1901 U/L (16-61)
[2020-08-17] MEDS: ASPIRIN 325 MG TABLET PO SCH (08:51)
[2020-08-17] MEDS: THIAMINE 100 MG TABLET PO SCH (08:51)
[2020-08-17] MEDS: FUROSEMIDE 40 MG TABLET PO SCH ×2 (08:52→16:27)
[2020-08-17] MEDS: FOLIC ACID 1 MG TABLET PO SCH (08:52)
[2020-08-17] MEDS: SPIRONOLACTONE 25 MG TABLET PO SCH (08:53)
[2020-08-17] MEDS: PANTOPRAZOLE 40 MG TABLET PO SCH (08:54)
[2020-08-17] MEDS: MULTIVITAMIN (CENTRUM) TABLET PO SCH (08:54)
[2020-08-17] MEDS: POLYETHYLENE GLYCOL POWDER 17 GM PACK PO SCH (09:03)
[2020-08-17] MEDS: TAMSULOSIN 0.4 MG CAPSULE PO SCH (23:22)
[2020-08-18] MEDS: CHLORHEXIDINE 0.12% ORAL RINSE 60 ML BOTTLE SWISH/SPIT SCH ×2 (00:21→09:11)
[2020-08-18] MEDS: ALBUTEROL/IPRATROPIUM 3 ML NEB RESP TX SCH ×4 (01:55→19:30)
[2020-08-18] MEDS: oxyCODONE/ACETAMINOPHEN 5-325 MG TABLET PO PRN (05:22)
[2020-08-18 07:17] LABS: Basophils # 0.1 10*3/uL (0.0-0.2); Basophils % 0.3 % (0.0-0.8); Eosinophils % 0.1 % (0.00-10.9); Hematocrit 38.9 VOL% (42.0-52.0); Hemoglobin 12.9 GM/DL (14.0-18.0); Immature Granulocytes % 2.1 %; Immature Granulocytes Absolute 0.39 #; Lymphocytes # 0.9 10*3/uL (1.4-4.0); Lymphocytes % 4.8 % (21.2-54.2); Mean Corpuscular HGB Conc 33.2 GM/DL (32-36); Mean Corpuscular Volume 88.6 FL (87-102); Mean Platelet Volume 10.2 FL (9.6-12.0); Monocytes % 4.2 % (1.7-12.7); Neutrophils % 88.5 % (38.7-73.9); Platelet Count 322 T/CUMM (130-400); Red Blood Count 4.39 MC/CUMM (3.8-5.5); Red Cell Distribution Width 14.8 % (9.3-17.3); White Blood Count 18.4 T/CUMM (4-12)
[2020-08-18 07:39] LABS: Albumin 3.1 G/DL (3.4-5.0); Bilirubin,Total 2.3 MG/DL (0.2-1.0); Calcium 9.9 MG/DL (8.5-10.1); Total Protein 6.9 G/DL (6.4-8.3)
[2020-08-18] MEDS: carvediloL 3.125 MG TABLET PO SCH (09:08)
[2020-08-18] MEDS: ASPIRIN 325 MG TABLET PO SCH (09:08)
[2020-08-18] MEDS: POTASSIUM CHLORIDE 20 MEQ TABLET PO SCH (09:08)
[2020-08-18] MEDS: ASCORBIC ACID 500 MG TABLET PO SCH (09:08)
[2020-08-18] MEDS: DOCUSATE SODIUM 100 MG CAPSULE PO SCH (09:09)
[2020-08-18] MEDS: MULTIVITAMIN (CENTRUM) TABLET PO SCH (09:09)
[2020-08-18] MEDS: SPIRONOLACTONE 25 MG TABLET PO SCH (09:09)
[2020-08-18] MEDS: FOLIC ACID 1 MG TABLET PO SCH (09:09)
[2020-08-18] MEDS: THIAMINE 100 MG TABLET PO SCH (09:09)
[2020-08-18] MEDS: FUROSEMIDE 40 MG TABLET PO SCH ×2 (09:09→16:33)
[2020-08-18] MEDS: PANTOPRAZOLE 40 MG TABLET PO SCH (09:09)
[2020-08-18] MEDS: SACUBITRIL/VALSARTAN 49-51 MG TABLET PO SCH (09:10)
[2020-08-18] MEDS: POLYETHYLENE GLYCOL POWDER 17 GM PACK PO SCH (09:10)
[2020-08-18] MEDS: INSULIN LISPRO 100 UNIT/ML SUBCUT SCH ×3 (09:11→16:32)
[2020-08-18] MEDS: INSULIN GLARGINE 100 UNIT/ML SUBCUT SCH (09:12)
[2020-08-18 10:10] LABS: Band Neutrophils 1 % (0-10); Lymphocytes 3 % (20-55); Metamyelocytes 1 %; Segmented Neutrophils 92 % (50-85); Total Cells Counted 100
[2020-08-18 10:11] LABS: Anisocytosis 1+; Hypochromasia 1+; Platelet Estimate Normal; Polychromasia Slight
[2020-08-18 11:25] LABS: Bilirubin,Urine Negative (Negative); Blood, Urine Small mg/dL (Negative); Glucose,Urine (UA) >=500 mg/dL (Negative); Ketones,Urine Negative (Negative); Nitrite,Urine Negative (Negative); Protein,Urine Negative; RBC,Urine 29 /HPF (0-4); Urine Appearance CLEAR (Clear); Urine Color Yellow (Yellow); Urine Specific Gravity 1.009 (1.001-1.035); WBC,Urine <1 /HPF (0-6)
[2020-08-18] MEDS ORDERED: SODIUM CHLORIDE 0.9% 250 ML IV ONE ×2 (16:15→17:30)
[2020-08-18] MEDS: PHENAZOPYRIDINE 95 MG TABLET PO SCH (16:33)
[2020-08-19] MEDS: ESCITALOPRAM 10 MG TABLET PO SCH ×2 (00:04→20:34)
[2020-08-19] MEDS: TAMSULOSIN 0.4 MG CAPSULE PO SCH ×2 (00:04→20:34)
[2020-08-19] MEDS: DOCUSATE SODIUM 100 MG CAPSULE PO SCH ×3 (00:05→20:34)
[2020-08-19] MEDS: POTASSIUM CHLORIDE 20 MEQ TABLET PO SCH ×3 (00:06→20:34)
[2020-08-19] MEDS: CHLORHEXIDINE 0.12% ORAL RINSE 60 ML BOTTLE SWISH/SPIT SCH ×3 (00:07→20:35)
[2020-08-19] MEDS: ASCORBIC ACID 500 MG TABLET PO SCH ×3 (00:09→20:34)
[2020-08-19] MEDS: INSULIN LISPRO 100 UNIT/ML SUBCUT SCH ×5 (00:29→20:34)
[2020-08-19] MEDS: ALBUTEROL/IPRATROPIUM 3 ML NEB RESP TX SCH ×4 (01:18→19:42)
[2020-08-19] MEDS: BENZONATATE 100 MG CAPSULE PO PRN (05:39)
[2020-08-19 06:12] LABS: Basophils % 0.2 % (0.0-0.8); Eosinophils # 0.3 10*3/uL (0.0-0.87); Eosinophils % 2.3 % (0.00-10.9); Hematocrit 33.1 VOL% (42.0-52.0); Hemoglobin 10.7 GM/DL (14.0-18.0); Immature Granulocytes % 2.6 %; Immature Granulocytes Absolute 0.33 #; Lymphocytes # 1.2 10*3/uL (1.4-4.0); Lymphocytes % 9.4 % (21.2-54.2); Mean Corpuscular HGB Conc 32.3 GM/DL (32-36); Mean Platelet Volume 10.2 FL (9.6-12.0); Monocytes % 6.8 % (1.7-12.7); Neutrophils % 78.7 % (38.7-73.9); Platelet Count 242 T/CUMM (130-400); Red Blood Count 3.72 MC/CUMM (3.8-5.5); White Blood Count 12.8 T/CUMM (4-12)
[2020-08-19 06:36] LABS: Alanine Aminotransferase 910 U/L (16-61); Albumin 2.4 G/DL (3.4-5.0); Alkaline Phosphatase 206 U/L (45-117); Aspartate Amino Transferase 111 U/L (0-37); Bilirubin,Indirect 0.5 MG/DL (0.0-1.0); Blood Urea Nitrogen 39 MG/DL (7-18); Calcium 8.8 MG/DL (8.5-10.1); Estimated Glom Filtration Rate 109 ML/MIN; Glucose 194 MG/DL (74-106); Osmolality,Calculated 303.6 MOS/KG (273-304); Total Protein 5.5 G/DL (6.4-8.3)
[2020-08-19] MEDS: PHENYLEPHRINE DRIP 40 MG/250 ML PREMIX IV PRN ×3 (08:25→23:46)
[2020-08-19] MEDS: SACUBITRIL/VALSARTAN 49-51 MG TABLET PO SCH (10:47)
[2020-08-19] MEDS: carvediloL 3.125 MG TABLET PO SCH (10:47)
[2020-08-19] MEDS: SPIRONOLACTONE 25 MG TABLET PO SCH (11:00)
[2020-08-19 12:26] LABS: Basophils % 0.2 % (0.0-0.8); Eosinophils # 0.1 10*3/uL (0.0-0.87); Eosinophils % 0.3 % (0.00-10.9); Hematocrit 34.1 VOL% (42.0-52.0); Hemoglobin 11.2 GM/DL (14.0-18.0); Immature Granulocytes % 2.9 %; Immature Granulocytes Absolute 0.61 #; Lymphocytes # 0.9 10*3/uL (1.4-4.0); Lymphocytes % 4.4 % (21.2-54.2); Mean Corpuscular HGB Conc 32.8 GM/DL (32-36); Monocytes % 4.9 % (1.7-12.7); Neutrophils % 87.3 % (38.7-73.9); Platelet Count 293 T/CUMM (130-400); Red Blood Count 3.83 MC/CUMM (3.8-5.5); Red Cell Distribution Width 15.4 % (9.3-17.3)
[2020-08-19] MEDS: FUROSEMIDE 40 MG TABLET PO SCH ×2 (12:35→17:30)
[2020-08-19] MEDS: PHENAZOPYRIDINE 95 MG TABLET PO SCH ×2 (12:35→17:30)
[2020-08-19] MEDS: PANTOPRAZOLE 40 MG TABLET PO SCH (12:35)
[2020-08-19] MEDS: MULTIVITAMIN (CENTRUM) TABLET PO SCH (12:36)
[2020-08-19] MEDS: ASPIRIN 325 MG TABLET PO SCH (12:36)
[2020-08-19] MEDS: POLYETHYLENE GLYCOL POWDER 17 GM PACK PO SCH (12:36)
[2020-08-19] MEDS: THIAMINE 100 MG TABLET PO SCH (12:36)
[2020-08-19 12:47] LABS: Double Stranded DNA Antibodies < 25.0 IU/ML
[2020-08-19 12:51] LABS: Band Neutrophils 1 % (0-10); Eosinophils 1 % (0-10); Hypochromasia Slight; Lymphocytes 8 % (20-55); Segmented Neutrophils 90 % (50-85); Total Cells Counted 100
[2020-08-19 12:52] LABS: Atypical Lymphocytes Few; Microcytosis 2+; Platelet Estimate Adequate
[2020-08-19] MEDS: FOLIC ACID 1 MG TABLET PO SCH (12:54)
[2020-08-19] MEDS: INSULIN GLARGINE 100 UNIT/ML SUBCUT SCH (12:54)
[2020-08-19 13:06] LABS: Anti SS-A Antibodies < 16 EU/ML
[2020-08-19] MEDS: LACTULOSE 20 GM/30 ML UDCUP PO PRN (20:34)
[2020-08-20] MEDS: ALBUTEROL/IPRATROPIUM 3 ML NEB RESP TX SCH ×4 (01:36→19:41)
[2020-08-20 05:28] LABS: Basophils % 0.2 % (0.0-0.8); Eosinophils # 0.1 10*3/uL (0.0-0.87); Eosinophils % 0.5 % (0.00-10.9); Hematocrit 33.2 VOL% (42.0-52.0); Hemoglobin 10.7 GM/DL (14.0-18.0); Immature Granulocytes % 2.1 %; Immature Granulocytes Absolute 0.37 #; Lymphocytes # 1.2 10*3/uL (1.4-4.0); Lymphocytes % 6.8 % (21.2-54.2); Mean Corpuscular HGB Conc 32.2 GM/DL (32-36); Mean Platelet Volume 10.2 FL (9.6-12.0); Neutrophils % 83.4 % (38.7-73.9); Platelet Count 266 T/CUMM (130-400); Red Blood Count 3.73 MC/CUMM (3.8-5.5); Red Cell Distribution Width 15.2 % (9.3-17.3); White Blood Count 17.8 T/CUMM (4-12)
[2020-08-20 05:43] LABS: Alanine Aminotransferase 650 U/L (16-61); Albumin 2.5 G/DL (3.4-5.0); Alkaline Phosphatase 189 U/L (45-117); Aspartate Amino Transferase 58 U/L (0-37); Bilirubin,Indirect 0.6 MG/DL (0.0-1.0); Blood Urea Nitrogen 25 MG/DL (7-18); Calcium 8.8 MG/DL (8.5-10.1); Estimated Glom Filtration Rate 116 ML/MIN; Glucose 173 MG/DL (74-106); Total Protein 5.6 G/DL (6.4-8.3)
[2020-08-20] MEDS: ASPIRIN 325 MG TABLET PO SCH (08:16)
[2020-08-20] MEDS: PHENAZOPYRIDINE 95 MG TABLET PO SCH ×2 (08:16→18:09)
[2020-08-20] MEDS: INSULIN LISPRO 100 UNIT/ML SUBCUT SCH ×4 (08:16→20:39)
[2020-08-20] MEDS: FUROSEMIDE 40 MG TABLET PO SCH (08:16)
[2020-08-20] MEDS: THIAMINE 100 MG TABLET PO SCH (08:17)
[2020-08-20] MEDS: POTASSIUM CHLORIDE 20 MEQ TABLET PO SCH ×2 (08:17→20:40)
[2020-08-20] MEDS: LACTULOSE 20 GM/30 ML UDCUP PO PRN ×2 (08:17→14:05)
[2020-08-20] MEDS: FOLIC ACID 1 MG TABLET PO SCH (08:18)
[2020-08-20] MEDS: PANTOPRAZOLE 40 MG TABLET PO SCH (08:18)
[2020-08-20] MEDS: MULTIVITAMIN (CENTRUM) TABLET PO SCH (08:18)
[2020-08-20] MEDS: INSULIN GLARGINE 100 UNIT/ML SUBCUT SCH ×2 (08:18→08:20)
[2020-08-20] MEDS: POLYETHYLENE GLYCOL POWDER 17 GM PACK PO SCH ×3 (08:18→20:52)
[2020-08-20] MEDS: DOCUSATE SODIUM 100 MG CAPSULE PO SCH ×2 (08:18→20:40)
[2020-08-20] MEDS: ASCORBIC ACID 500 MG TABLET PO SCH ×2 (08:18→20:40)
[2020-08-20] MEDS: CHLORHEXIDINE 0.12% ORAL RINSE 60 ML BOTTLE SWISH/SPIT SCH ×2 (08:19→20:42)
[2020-08-20] MEDS: PHENYLEPHRINE DRIP 40 MG/250 ML PREMIX IV PRN (11:49)
[2020-08-20] MEDS: BENZONATATE 100 MG CAPSULE PO PRN (16:41)
[2020-08-20] MEDS: TAMSULOSIN 0.4 MG CAPSULE PO SCH (20:40)
[2020-08-20] MEDS: ESCITALOPRAM 10 MG TABLET PO SCH (20:40)
[2020-08-20] MEDS: oxyCODONE/ACETAMINOPHEN 5-325 MG TABLET PO PRN (20:40)
[2020-08-21] MEDS: ALBUTEROL/IPRATROPIUM 3 ML NEB RESP TX SCH ×4 (01:42→19:13)
[2020-08-21] MEDS: PHENYLEPHRINE DRIP 40 MG/250 ML PREMIX IV PRN (03:42)
[2020-08-21 04:46] LABS: Basophils % 0.2 % (0.0-0.8); Eosinophils # 0.2 10*3/uL (0.0-0.87); Eosinophils % 1.3 % (0.00-10.9); Hematocrit 31.9 VOL% (42.0-52.0); Hemoglobin 10.1 GM/DL (14.0-18.0); Immature Granulocytes % 1.6 %; Immature Granulocytes Absolute 0.22 #; Lymphocytes # 1.4 10*3/uL (1.4-4.0); Lymphocytes % 10.1 % (21.2-54.2); Mean Corpuscular HGB Conc 31.7 GM/DL (32-36); Mean Corpuscular Volume 90.4 FL (87-102); Mean Platelet Volume 10.3 FL (9.6-12.0); Monocytes % 8.2 % (1.7-12.7); Neutrophils % 78.6 % (38.7-73.9); Platelet Count 268 T/CUMM (130-400); Red Blood Count 3.53 MC/CUMM (3.8-5.5); Red Cell Distribution Width 15.3 % (9.3-17.3); White Blood Count 13.5 T/CUMM (4-12)
[2020-08-21 05:12] LABS: Calcium 8.6 MG/DL (8.5-10.1); Osmolality,Calculated 290.8 MOS/KG (273-304)
[2020-08-21] MEDS: BENZONATATE 100 MG CAPSULE PO PRN (06:06)
[2020-08-21] MEDS: INSULIN LISPRO 100 UNIT/ML SUBCUT SCH ×5 (08:46→20:05)
[2020-08-21] MEDS: MULTIVITAMIN (CENTRUM) TABLET PO SCH (09:50)
[2020-08-21] MEDS: DOCUSATE SODIUM 100 MG CAPSULE PO SCH ×2 (09:50→20:05)
[2020-08-21] MEDS: INSULIN GLARGINE 100 UNIT/ML SUBCUT SCH ×2 (09:50→12:18)
[2020-08-21] MEDS: ASPIRIN 325 MG TABLET PO SCH (09:50)
[2020-08-21] MEDS: POTASSIUM CHLORIDE 20 MEQ TABLET PO SCH ×2 (09:50→20:05)
[2020-08-21] MEDS: FOLIC ACID 1 MG TABLET PO SCH (09:50)
[2020-08-21] MEDS: PHENAZOPYRIDINE 95 MG TABLET PO SCH ×2 (09:50→17:27)
[2020-08-21] MEDS: ASCORBIC ACID 500 MG TABLET PO SCH ×2 (09:51→20:05)
[2020-08-21] MEDS: POLYETHYLENE GLYCOL POWDER 17 GM PACK PO SCH ×2 (09:51→20:06)
[2020-08-21] MEDS: CHLORHEXIDINE 0.12% ORAL RINSE 60 ML BOTTLE SWISH/SPIT SCH ×2 (09:51→20:06)
[2020-08-21] MEDS: PANTOPRAZOLE 40 MG TABLET PO SCH (09:51)
[2020-08-21] MEDS: THIAMINE 100 MG TABLET PO SCH (09:51)
[2020-08-21] MEDS: ESCITALOPRAM 10 MG TABLET PO SCH (20:05)
[2020-08-21] MEDS: TAMSULOSIN 0.4 MG CAPSULE PO SCH (20:05)
[2020-08-22] MEDS: ALBUTEROL/IPRATROPIUM 3 ML NEB RESP TX SCH ×4 (00:55→19:36)
[2020-08-22 04:51] LABS: Basophils % 0.1 % (0.0-0.8); Eosinophils # 0.3 10*3/uL (0.0-0.87); Eosinophils % 2.2 % (0.00-10.9); Hematocrit 30.1 VOL% (42.0-52.0); Hemoglobin 9.8 GM/DL (14.0-18.0); Immature Granulocytes % 1.2 %; Immature Granulocytes Absolute 0.14 #; Lymphocytes # 1.1 10*3/uL (1.4-4.0); Lymphocytes % 10.2 % (21.2-54.2); Mean Corpuscular HGB Conc 32.6 GM/DL (32-36); Mean Corpuscular Volume 89.6 FL (87-102); Monocytes % 7.2 % (1.7-12.7); Neutrophils % 79.1 % (38.7-73.9); Platelet Count 256 T/CUMM (130-400); Red Blood Count 3.36 MC/CUMM (3.8-5.5); Red Cell Distribution Width 15.1 % (9.3-17.3); White Blood Count 11.2 T/CUMM (4-12)
[2020-08-22 05:14] LABS: Albumin 2.3 G/DL (3.4-5.0); Calcium 8.3 MG/DL (8.5-10.1); Calcium 8.5 MG/DL (8.5-10.1); Osmolality,Calculated 287.1 MOS/KG (273-304); Total Protein 5.8 G/DL (6.4-8.3)
[2020-08-22] MEDS: INSULIN LISPRO 100 UNIT/ML SUBCUT SCH ×4 (08:30→20:44)
[2020-08-22] MEDS: POTASSIUM CHLORIDE 20 MEQ TABLET PO SCH (08:55)
[2020-08-22] MEDS: FOLIC ACID 1 MG TABLET PO SCH (08:55)
[2020-08-22] MEDS: INSULIN GLARGINE 100 UNIT/ML SUBCUT SCH (08:55)
[2020-08-22] MEDS: THIAMINE 100 MG TABLET PO SCH (08:55)
[2020-08-22] MEDS: PHENAZOPYRIDINE 95 MG TABLET PO SCH ×2 (08:55→17:02)
[2020-08-22] MEDS: ASCORBIC ACID 500 MG TABLET PO SCH ×2 (08:55→20:43)
[2020-08-22] MEDS: ASPIRIN 325 MG TABLET PO SCH (08:55)
[2020-08-22] MEDS: PANTOPRAZOLE 40 MG TABLET PO SCH (08:55)
[2020-08-22] MEDS: MULTIVITAMIN (CENTRUM) TABLET PO SCH (08:55)
[2020-08-22] MEDS: DOCUSATE SODIUM 100 MG CAPSULE PO SCH ×2 (08:55→21:42)
[2020-08-22] MEDS: CHLORHEXIDINE 0.12% ORAL RINSE 60 ML BOTTLE SWISH/SPIT SCH (08:55)
[2020-08-22] MEDS: POLYETHYLENE GLYCOL POWDER 17 GM PACK PO SCH ×2 (08:55→20:44)
[2020-08-22] MEDS: BENZONATATE 100 MG CAPSULE PO PRN (17:03)
[2020-08-22] MEDS: TAMSULOSIN 0.4 MG CAPSULE PO SCH (20:43)
[2020-08-22] MEDS: ESCITALOPRAM 10 MG TABLET PO SCH (20:43)
[2020-08-22] MEDS: PRIMIDONE 50 MG TABLET PO SCH (20:43)
[2020-08-23] MEDS: ALBUTEROL/IPRATROPIUM 3 ML NEB RESP TX SCH ×4 (00:50→18:39)
[2020-08-23 06:08] LABS: Basophils % 0.2 % (0.0-0.8); Eosinophils # 0.2 10*3/uL (0.0-0.87); Hematocrit 30.9 VOL% (42.0-52.0); Immature Granulocytes % 1.3 %; Immature Granulocytes Absolute 0.13 #; Lymphocytes # 0.9 10*3/uL (1.4-4.0); Lymphocytes % 9.7 % (21.2-54.2); Mean Corpuscular HGB Conc 32.4 GM/DL (32-36); Mean Platelet Volume 10.8 FL (9.6-12.0); Monocytes % 7.5 % (1.7-12.7); Neutrophils % 79.3 % (38.7-73.9); Platelet Count 310 T/CUMM (130-400); Red Blood Count 3.47 MC/CUMM (3.8-5.5); Red Cell Distribution Width 14.8 % (9.3-17.3); White Blood Count 9.7 T/CUMM (4-12)
[2020-08-23 06:24] LABS: Calcium 8.3 MG/DL (8.5-10.1); Osmolality,Calculated 282.3 MOS/KG (273-304)
[2020-08-23 06:30] LABS: Alanine Aminotransferase 248 U/L (16-61); Albumin 2.1 G/DL (3.4-5.0); Alkaline Phosphatase 161 U/L (45-117); Aspartate Amino Transferase 28 U/L (0-37); Bilirubin,Indirect 0.5 MG/DL (0.0-1.0); Blood Urea Nitrogen 16 MG/DL (7-18); Calcium 8.4 MG/DL (8.5-10.1); Estimated Glom Filtration Rate 123 ML/MIN; Glucose 117 MG/DL (74-106); Osmolality,Calculated 280.4 MOS/KG (273-304); Total Protein 5.5 G/DL (6.4-8.3)
[2020-08-23 06:32] LABS: Troponin I 0.515 NG/ML (0.00-0.045)
[2020-08-23] MEDS: PHENAZOPYRIDINE 95 MG TABLET PO SCH ×2 (07:57→17:18)
[2020-08-23] MEDS: POLYETHYLENE GLYCOL POWDER 17 GM PACK PO SCH ×2 (10:31→20:36)
[2020-08-23] MEDS: MULTIVITAMIN (CENTRUM) TABLET PO SCH (10:31)
[2020-08-23] MEDS: ASCORBIC ACID 500 MG TABLET PO SCH ×2 (10:32→20:36)
[2020-08-23] MEDS: DOCUSATE SODIUM 100 MG CAPSULE PO SCH ×2 (10:32→20:35)
[2020-08-23] MEDS: metFORMIN 500 MG TABLET PO SCH (10:32)
[2020-08-23] MEDS: ASPIRIN 325 MG TABLET PO SCH (10:32)
[2020-08-23] MEDS: PANTOPRAZOLE 40 MG TABLET PO SCH (10:33)
[2020-08-23] MEDS: INSULIN GLARGINE 100 UNIT/ML SUBCUT SCH (10:33)
[2020-08-23] MEDS: FOLIC ACID 1 MG TABLET PO SCH (10:33)
[2020-08-23] MEDS: carvediloL 3.125 MG TABLET PO SCH ×2 (10:33→20:35)
[2020-08-23] MEDS: THIAMINE 100 MG TABLET PO SCH (10:33)
[2020-08-23] MEDS: INSULIN LISPRO 100 UNIT/ML SUBCUT SCH ×4 (10:34→20:36)
[2020-08-23] MEDS ORDERED: LACTULOSE 20 GM/30 ML UDCUP PO SCH (12:00)
[2020-08-23] MEDS: ESCITALOPRAM 10 MG TABLET PO SCH (20:35)
[2020-08-23] MEDS: guaiFENesin/DM ER 600-30 MG TABLET PO SCH (20:35)
[2020-08-23] MEDS: TAMSULOSIN 0.4 MG CAPSULE PO SCH (20:35)
[2020-08-23] MEDS: PRIMIDONE 50 MG TABLET PO SCH (20:36)
[2020-08-23] MEDS: LACTULOSE 20 GM/30 ML UDCUP PO SCH (20:36)
[2020-08-23] MEDS: MORPHINE 4 MG/1 ML VIAL IV PRN ×2 (21:32→22:46)
[2020-08-24] MEDS: ALBUTEROL/IPRATROPIUM 3 ML NEB RESP TX SCH ×4 (00:14→19:06)
[2020-08-24] MEDS: MORPHINE 4 MG/1 ML VIAL IV PRN ×8 (00:27→22:41)
[2020-08-24 05:30] LABS: Basophils % 0.2 % (0.0-0.8); Eosinophils # 0.2 10*3/uL (0.0-0.87); Eosinophils % 2.2 % (0.00-10.9); Hematocrit 28.4 VOL% (42.0-52.0); Hemoglobin 9.2 GM/DL (14.0-18.0); Immature Granulocytes % 0.8 %; Immature Granulocytes Absolute 0.08 #; Lymphocytes % 9.9 % (21.2-54.2); Mean Corpuscular HGB Conc 32.4 GM/DL (32-36); Mean Corpuscular Volume 88.2 FL (87-102); Mean Platelet Volume 10.5 FL (9.6-12.0); Monocytes % 8.1 % (1.7-12.7); Neutrophils % 78.8 % (38.7-73.9); Platelet Count 335 T/CUMM (130-400); Red Blood Count 3.22 MC/CUMM (3.8-5.5); Red Cell Distribution Width 14.6 % (9.3-17.3); White Blood Count 10.2 T/CUMM (4-12)
[2020-08-24 05:57] LABS: Alanine Aminotransferase 199 U/L (16-61); Albumin 2.1 G/DL (3.4-5.0); Alkaline Phosphatase 163 U/L (45-117); Aspartate Amino Transferase 30 U/L (0-37); Bilirubin,Indirect 0.5 MG/DL (0.0-1.0); Blood Urea Nitrogen 14 MG/DL (7-18); Glucose 142 MG/DL (74-106); Total Protein 5.5 G/DL (6.4-8.3)
[2020-08-24 06:20] LABS: Estimated Glom Filtration Rate 101 ML/MIN
[2020-08-24] MEDS ORDERED: guaiFENesin/CODEINE 5 ML LIQUID PO ONE (08:24)
[2020-08-24] MEDS: INSULIN GLARGINE 100 UNIT/ML SUBCUT SCH (09:52)
[2020-08-24] MEDS: INSULIN LISPRO 100 UNIT/ML SUBCUT SCH ×4 (09:52→21:37)
[2020-08-24] MEDS: PHENAZOPYRIDINE 95 MG TABLET PO SCH ×2 (09:52→16:11)
[2020-08-24] MEDS: ASPIRIN 325 MG TABLET PO SCH (09:53)
[2020-08-24] MEDS: MULTIVITAMIN (CENTRUM) TABLET PO SCH (09:53)
[2020-08-24] MEDS: ASCORBIC ACID 500 MG TABLET PO SCH ×2 (09:53→20:12)
[2020-08-24] MEDS: POLYETHYLENE GLYCOL POWDER 17 GM PACK PO SCH ×2 (09:53→20:11)
[2020-08-24] MEDS: DOCUSATE SODIUM 100 MG CAPSULE PO SCH ×2 (09:53→20:13)
[2020-08-24] MEDS: LACTULOSE 20 GM/30 ML UDCUP PO SCH ×2 (09:53→20:11)
[2020-08-24] MEDS: THIAMINE 100 MG TABLET PO SCH (09:53)
[2020-08-24] MEDS: PANTOPRAZOLE 40 MG TABLET PO SCH (09:54)
[2020-08-24] MEDS: carvediloL 3.125 MG TABLET PO SCH ×2 (09:54→20:11)
[2020-08-24] MEDS: metFORMIN 500 MG TABLET PO SCH (09:54)
[2020-08-24] MEDS: BENZONATATE 100 MG CAPSULE PO SCH ×2 (09:54→20:12)
[2020-08-24] MEDS: FOLIC ACID 1 MG TABLET PO SCH (09:54)
[2020-08-24] MEDS: guaiFENesin/DM ER 600-30 MG TABLET PO SCH ×2 (09:55→20:13)
[2020-08-24] MEDS ORDERED: guaiFENesin/CODEINE 5 ML LIQUID PO PRN (12:25)
[2020-08-24] MEDS: PRIMIDONE 50 MG TABLET PO SCH (20:11)
[2020-08-24] MEDS: ESCITALOPRAM 10 MG TABLET PO SCH (20:13)
[2020-08-24] MEDS: TAMSULOSIN 0.4 MG CAPSULE PO SCH (20:14)
[2020-08-25] MEDS: MORPHINE 4 MG/1 ML VIAL IV PRN ×7 (00:18→23:21)
[2020-08-25] MEDS: ALBUTEROL/IPRATROPIUM 3 ML NEB RESP TX SCH ×4 (01:10→18:27)
[2020-08-25] MEDS: PHENAZOPYRIDINE 95 MG TABLET PO SCH ×2 (08:10→16:59)
[2020-08-25] MEDS: LACTULOSE 20 GM/30 ML UDCUP PO SCH ×2 (10:21→20:56)
[2020-08-25] MEDS: ASPIRIN 325 MG TABLET PO SCH (10:22)
[2020-08-25] MEDS: MULTIVITAMIN (CENTRUM) TABLET PO SCH (10:22)
[2020-08-25] MEDS: ASCORBIC ACID 500 MG TABLET PO SCH ×2 (10:22→20:58)
[2020-08-25] MEDS: DOCUSATE SODIUM 100 MG CAPSULE PO SCH ×2 (10:22→20:56)
[2020-08-25] MEDS: FOLIC ACID 1 MG TABLET PO SCH (10:22)
[2020-08-25] MEDS: BENZONATATE 100 MG CAPSULE PO SCH ×2 (10:23→20:58)
[2020-08-25] MEDS: carvediloL 3.125 MG TABLET PO SCH ×2 (10:24→20:57)
[2020-08-25] MEDS: THIAMINE 100 MG TABLET PO SCH (10:24)
[2020-08-25] MEDS: PANTOPRAZOLE 40 MG TABLET PO SCH (10:24)
[2020-08-25] MEDS: INSULIN GLARGINE 100 UNIT/ML SUBCUT SCH (10:32)
[2020-08-25] MEDS: NYSTATIN 500,000 UNIT/5 ML UDCUP SWISH/SWAL SCH ×4 (10:32→20:58)
[2020-08-25] MEDS: INSULIN LISPRO 100 UNIT/ML SUBCUT SCH ×4 (10:33→20:57)
[2020-08-25] MEDS: POLYETHYLENE GLYCOL POWDER 17 GM PACK PO SCH ×2 (10:34→20:58)
[2020-08-25] MEDS: guaiFENesin/DM ER 600-30 MG TABLET PO SCH ×2 (10:39→20:58)
[2020-08-25] MEDS: metFORMIN 500 MG TABLET PO SCH ×2 (11:45→20:57)
[2020-08-25 13:57] LABS: Bacteria,Urine Many /HPF (Few); Bilirubin,Urine Negative (Negative); Blood, Urine Negative (Negative); Glucose,Urine (UA) 50 mg/dL (Negative); Ketones,Urine 5 mg/dL (Negative); Mucus,Urine Occasional /LPF (Occasional); Nitrite,Urine Positive (Negative); Protein,Urine Negative; RBC,Urine 9 /HPF (0-4); Urine Appearance CLEAR (Clear); Urine Color Amber (Yellow); Urine Specific Gravity 1.017 (1.001-1.035)
[2020-08-25] MEDS: TAMSULOSIN 0.4 MG CAPSULE PO SCH (20:57)
[2020-08-25] MEDS: ESCITALOPRAM 10 MG TABLET PO SCH (20:57)
[2020-08-25] MEDS: PRIMIDONE 50 MG TABLET PO SCH (20:58)
[2020-08-26] MEDS: ALBUTEROL/IPRATROPIUM 3 ML NEB RESP TX SCH ×4 (00:47→19:05)
[2020-08-26] MEDS: MORPHINE 4 MG/1 ML VIAL IV PRN ×4 (01:26→05:34)
[2020-08-26 05:16] LABS: Basophils % 0.2 % (0.0-0.8); Eosinophils # 0.2 10*3/uL (0.0-0.87); Eosinophils % 1.6 % (0.00-10.9); Hematocrit 29.9 VOL% (42.0-52.0); Hemoglobin 9.7 GM/DL (14.0-18.0); Immature Granulocytes % 0.9 %; Lymphocytes # 1.1 10*3/uL (1.4-4.0); Lymphocytes % 10.1 % (21.2-54.2); Mean Corpuscular HGB Conc 32.4 GM/DL (32-36); Mean Corpuscular Volume 87.7 FL (87-102); Mean Platelet Volume 9.7 FL (9.6-12.0); Monocytes % 6.5 % (1.7-12.7); Neutrophils % 80.7 % (38.7-73.9); Platelet Count 421 T/CUMM (130-400); Red Blood Count 3.41 MC/CUMM (3.8-5.5); Red Cell Distribution Width 14.4 % (9.3-17.3); White Blood Count 10.7 T/CUMM (4-12)
[2020-08-26 05:38] LABS: Alanine Aminotransferase 146 U/L (16-61); Albumin 2.3 G/DL (3.4-5.0); Alkaline Phosphatase 208 U/L (45-117); Aspartate Amino Transferase 31 U/L (0-37); Bilirubin,Indirect 0.4 MG/DL (0.0-1.0); Blood Urea Nitrogen 11 MG/DL (7-18); Calcium 8.1 MG/DL (8.5-10.1); Estimated Glom Filtration Rate 123 ML/MIN; Glucose 229 MG/DL (74-106); Osmolality,Calculated 275.1 MOS/KG (273-304)
[2020-08-26] MEDS: NYSTATIN 500,000 UNIT/5 ML UDCUP SWISH/SWAL SCH ×4 (09:07→21:19)
[2020-08-26] MEDS: PHENAZOPYRIDINE 95 MG TABLET PO SCH ×2 (09:07→16:44)
[2020-08-26] MEDS: MULTIVITAMIN (CENTRUM) TABLET PO SCH (09:07)
[2020-08-26] MEDS: BENZONATATE 100 MG CAPSULE PO SCH ×2 (09:08→21:19)
[2020-08-26] MEDS: TAMSULOSIN 0.4 MG CAPSULE PO SCH ×2 (09:08→21:21)
[2020-08-26] MEDS: DOCUSATE SODIUM 100 MG CAPSULE PO SCH ×2 (09:08→21:20)
[2020-08-26] MEDS: ASPIRIN 325 MG TABLET PO SCH (09:08)
[2020-08-26] MEDS: guaiFENesin/DM ER 600-30 MG TABLET PO SCH ×2 (09:08→21:38)
[2020-08-26] MEDS: PANTOPRAZOLE 40 MG TABLET PO SCH (09:09)
[2020-08-26] MEDS: FOLIC ACID 1 MG TABLET PO SCH (09:09)
[2020-08-26] MEDS: LACTULOSE 20 GM/30 ML UDCUP PO SCH ×2 (09:09→21:18)
[2020-08-26] MEDS: ASCORBIC ACID 500 MG TABLET PO SCH ×2 (09:09→21:20)
[2020-08-26] MEDS: carvediloL 3.125 MG TABLET PO SCH ×2 (09:09→21:20)
[2020-08-26] MEDS: THIAMINE 100 MG TABLET PO SCH (09:09)
[2020-08-26] MEDS: metFORMIN 500 MG TABLET PO SCH ×2 (09:09→21:21)
[2020-08-26] MEDS: INSULIN LISPRO 100 UNIT/ML SUBCUT SCH ×4 (09:10→21:21)
[2020-08-26] MEDS: INSULIN GLARGINE 100 UNIT/ML SUBCUT SCH (09:10)
[2020-08-26] MEDS: POLYETHYLENE GLYCOL POWDER 17 GM PACK PO SCH ×2 (09:10→21:21)
[2020-08-26] MEDS: LEVOFLOXACIN 500 MG TABLET PO SCH (16:44)
[2020-08-26] MEDS: ESCITALOPRAM 10 MG TABLET PO SCH (21:20)
[2020-08-26] MEDS: PRIMIDONE 50 MG TABLET PO SCH (21:20)
[2020-08-27 06:24] LABS: Basophils % 0.3 % (0.0-0.8); Eosinophils # 0.2 10*3/uL (0.0-0.87); Eosinophils % 2.2 % (0.00-10.9); Hemoglobin 9.3 GM/DL (14.0-18.0); Immature Granulocytes % 0.9 %; Immature Granulocytes Absolute 0.07 #; Lymphocytes % 12.5 % (21.2-54.2); Mean Corpuscular HGB Conc 33.2 GM/DL (32-36); Mean Corpuscular Volume 88.6 FL (87-102); Mean Platelet Volume 9.8 FL (9.6-12.0); Monocytes % 8.2 % (1.7-12.7); Neutrophils % 75.9 % (38.7-73.9); Platelet Count 393 T/CUMM (130-400); Red Blood Count 3.16 MC/CUMM (3.8-5.5); Red Cell Distribution Width 14.6 % (9.3-17.3); White Blood Count 7.7 T/CUMM (4-12)
[2020-08-27 06:57] LABS: Alanine Aminotransferase 113 U/L (16-61); Albumin 2.1 G/DL (3.4-5.0); Alkaline Phosphatase 176 U/L (45-117); Aspartate Amino Transferase 22 U/L (0-37); Bilirubin,Indirect 0.3 MG/DL (0.0-1.0); Blood Urea Nitrogen 10 MG/DL (7-18); Calcium 7.9 MG/DL (8.5-10.1); Estimated Glom Filtration Rate 132 ML/MIN; Glucose 144 MG/DL (74-106); Osmolality,Calculated 278.5 MOS/KG (273-304); Total Protein 5.4 G/DL (6.4-8.3)
[2020-08-27 06:58] LABS: Troponin I 0.129 NG/ML (0.00-0.045)
[2020-08-27] MEDS: ALBUTEROL/IPRATROPIUM 3 ML NEB RESP TX SCH ×4 (07:30→19:09)
[2020-08-27] MEDS: INSULIN LISPRO 100 UNIT/ML SUBCUT SCH ×4 (08:27→20:24)
[2020-08-27] MEDS: INSULIN GLARGINE 100 UNIT/ML SUBCUT SCH (08:27)
[2020-08-27] MEDS: LACTULOSE 20 GM/30 ML UDCUP PO SCH ×2 (08:27→21:00)
[2020-08-27] MEDS: POLYETHYLENE GLYCOL POWDER 17 GM PACK PO SCH ×2 (08:27→21:00)
[2020-08-27] MEDS: SACUBITRIL/VALSARTAN 49-51 MG TABLET PO SCH ×2 (08:28→21:00)
[2020-08-27] MEDS: metFORMIN 500 MG TABLET PO SCH ×2 (08:28→21:01)
[2020-08-27] MEDS: guaiFENesin/DM ER 600-30 MG TABLET PO SCH ×2 (08:28→21:00)
[2020-08-27] MEDS: DOCUSATE SODIUM 100 MG CAPSULE PO SCH ×2 (08:28→21:01)
[2020-08-27] MEDS: ASPIRIN 325 MG TABLET PO SCH (08:28)
[2020-08-27] MEDS: MULTIVITAMIN (CENTRUM) TABLET PO SCH (08:28)
[2020-08-27] MEDS: NYSTATIN 500,000 UNIT/5 ML UDCUP SWISH/SWAL SCH ×4 (08:28→21:02)
[2020-08-27] MEDS: PHENAZOPYRIDINE 95 MG TABLET PO SCH ×2 (08:28→16:08)
[2020-08-27] MEDS: TAMSULOSIN 0.4 MG CAPSULE PO SCH ×2 (08:29→21:02)
[2020-08-27] MEDS: ASCORBIC ACID 500 MG TABLET PO SCH ×2 (08:29→21:01)
[2020-08-27] MEDS: THIAMINE 100 MG TABLET PO SCH (08:29)
[2020-08-27] MEDS: FOLIC ACID 1 MG TABLET PO SCH (08:29)
[2020-08-27] MEDS: carvediloL 3.125 MG TABLET PO SCH ×2 (08:29→21:02)
[2020-08-27] MEDS: BENZONATATE 100 MG CAPSULE PO SCH ×2 (08:29→21:01)
[2020-08-27] MEDS: PANTOPRAZOLE 40 MG TABLET PO SCH (08:29)
[2020-08-27] MEDS: LEVOFLOXACIN 500 MG TABLET PO SCH (16:08)
[2020-08-27] MEDS ORDERED: ROSUVASTATIN 10 MG TABLET PO SCH (21:00)
[2020-08-27] MEDS: ESCITALOPRAM 10 MG TABLET PO SCH (21:01)
[2020-08-27] MEDS: PRIMIDONE 50 MG TABLET PO SCH (21:02)
[2020-08-28] MEDS: ALBUTEROL/IPRATROPIUM 3 ML NEB RESP TX SCH ×3 (00:37→13:40)
[2020-08-28 06:13] LABS: Calcium 7.9 MG/DL (8.5-10.1); Osmolality,Calculated 281.5 MOS/KG (273-304)
[2020-08-28] MEDS: PANTOPRAZOLE 40 MG TABLET PO SCH (09:26)
[2020-08-28] MEDS: THIAMINE 100 MG TABLET PO SCH (09:26)
[2020-08-28] MEDS: MULTIVITAMIN (CENTRUM) TABLET PO SCH (09:26)
[2020-08-28] MEDS: ASPIRIN 325 MG TABLET PO SCH (09:26)
[2020-08-28] MEDS: guaiFENesin/DM ER 600-30 MG TABLET PO SCH (09:26)
[2020-08-28] MEDS: BENZONATATE 100 MG CAPSULE PO SCH (09:28)
[2020-08-28] MEDS: DOCUSATE SODIUM 100 MG CAPSULE PO SCH (09:28)
[2020-08-28] MEDS: ASCORBIC ACID 500 MG TABLET PO SCH (09:29)
[2020-08-28] MEDS: FOLIC ACID 1 MG TABLET PO SCH (09:29)
[2020-08-28] MEDS: PHENAZOPYRIDINE 95 MG TABLET PO SCH (09:30)
[2020-08-28] MEDS: metFORMIN 500 MG TABLET PO SCH (09:30)
[2020-08-28] MEDS: carvediloL 3.125 MG TABLET PO SCH (09:30)
[2020-08-28] MEDS: TAMSULOSIN 0.4 MG CAPSULE PO SCH (09:30)
[2020-08-28] MEDS: SACUBITRIL/VALSARTAN 49-51 MG TABLET PO SCH (09:30)
[2020-08-28] MEDS: POLYETHYLENE GLYCOL POWDER 17 GM PACK PO SCH (09:31)
[2020-08-28] MEDS: LACTULOSE 20 GM/30 ML UDCUP PO SCH (09:31)
[2020-08-28] MEDS: INSULIN GLARGINE 100 UNIT/ML SUBCUT SCH (09:33)
[2020-08-28] MEDS: NYSTATIN 500,000 UNIT/5 ML UDCUP SWISH/SWAL SCH (10:25)
[2020-08-28] MEDS: INSULIN LISPRO 100 UNIT/ML SUBCUT SCH ×2 (10:48→12:58)
[2020-08-28 13:52] VITALS: BP 99/53
== END 2020-08-28 14:55 | disposition home health service (06) | DRG 233 ==
LOC: EDUNIT# → EDBD → N.ED 15:14 → N.EDINP 15:14 → SUATTDRO 15:35 → N.EDINP 17:14 → N.TELEN 17:14 → N.ICU 08-09 10:31 → SUATTDRO 08-11 14:02 → N.CVR 08-12 07:23 → N.ICU 08-13 17:01 → N.TELES 08-15 20:07 → N.CVR 08-19 08:29 → N.ICU 08-19 22:17 → N.TELES 08-22 15:50
PROVIDERS: ADMIT Internal Medicine

== ENCOUNTER 2020-09-28 08:22 | Inpatient (IN) ==
[2020-09-28 08:55] LABS: Basophils % 0.6 % (0.0-0.8); Eosinophils # 0.1 10*3/uL (0.0-0.87); Eosinophils % 1.7 % (0.00-10.9); Hematocrit 31.8 VOL% (42.0-52.0); Hemoglobin 10.3 GM/DL (14.0-18.0); Immature Granulocytes % 0.7 %; Immature Granulocytes Absolute 0.04 #; Lymphocytes # 0.9 10*3/uL (1.4-4.0); Lymphocytes % 16.7 % (21.2-54.2); Mean Corpuscular HGB Conc 32.4 GM/DL (32-36); Mean Corpuscular Volume 85.3 FL (87-102); Mean Platelet Volume 10.6 FL (9.6-12.0); Monocytes % 7.1 % (1.7-12.7); Neutrophils % 73.2 % (38.7-73.9); Platelet Count 284 T/CUMM (130-400); Red Blood Count 3.73 MC/CUMM (3.8-5.5); Red Cell Distribution Width 15.9 % (9.3-17.3); White Blood Count 5.4 T/CUMM (4-12)
[2020-09-28 09:18] LABS: Calcium 8.6 MG/DL (8.5-10.1); Osmolality,Calculated 289.7 MOS/KG (273-304)
[2020-09-28] MEDS ORDERED: GLUCAGON 1 MG VIAL IM PRN (12:40)
[2020-09-28] MEDS ORDERED: MAGNESIUM SULF RIDER 2 GM in PREMIX 1 EACH IV PRN (12:40)
[2020-09-28] MEDS ORDERED: DEXTROSE 50% 25 GM/50 ML VIAL IV PRN (12:40)
[2020-09-28] MEDS ORDERED: MORPHINE 4 MG/1 ML VIAL IV PRN (12:40)
[2020-09-28] MEDS ORDERED: MAGNESIUM SULF RIDER 4 GM in PREMIX 1 EACH IV PRN (12:40)
[2020-09-28] MEDS ORDERED: NITROGLYCERIN SL 0.4 MG TABLET SL PRN (12:44)
[2020-09-28] MEDS ORDERED: BENZONATATE 100 MG CAPSULE PO PRN (12:45)
[2020-09-28] MEDS ORDERED: AZITHROMYCIN INJ 500 MG in SODIUM CHLORIDE 0.9% 250 ML IV SCH (16:00)
[2020-09-28] MEDS: carvediloL 3.125 MG TABLET PO SCH (17:35)
[2020-09-28] MEDS: cefTRIAXone 500 MG in SYRINGE 1 EACH IV SCH (17:35)
[2020-09-28] MEDS: INSULIN LISPRO 100 UNIT/ML SUBCUT SCH ×2 (17:35→22:09)
[2020-09-28] MEDS: SODIUM CHLORIDE 0.45% 1,000 ML IV SCH (17:40)
[2020-09-28] MEDS: ALBUTEROL/IPRATROPIUM 3 ML NEB RESP TX SCH (19:35)
[2020-09-28] MEDS ORDERED: PRIMIDONE 50 MG TABLET PO SCH (21:00)
[2020-09-28] MEDS ORDERED: ENOXAPARIN 40 MG/0.4 ML SYRINGE SUBCUT SCH (21:00)
[2020-09-28] MEDS ORDERED: ESCITALOPRAM 10 MG TABLET PO SCH (21:00)
[2020-09-28] MEDS: ASCORBIC ACID 500 MG TABLET PO SCH (22:04)
[2020-09-28] MEDS: TAMSULOSIN 0.4 MG CAPSULE PO SCH (22:05)
[2020-09-28] MEDS: BENZONATATE 100 MG CAPSULE PO SCH (22:06)
[2020-09-28] MEDS: SACUBITRIL/VALSARTAN 49-51 MG TABLET PO SCH (22:09)
[2020-09-29] MEDS: ALBUTEROL/IPRATROPIUM 3 ML NEB RESP TX SCH ×4 (00:47→20:07)
[2020-09-29] MEDS: SODIUM CHLORIDE 0.45% 1,000 ML IV SCH (04:17)
[2020-09-29 05:40] LABS: Basophils % 0.4 % (0.0-0.8); Eosinophils # 0.1 10*3/uL (0.0-0.87); Eosinophils % 1.3 % (0.00-10.9); Hematocrit 32.6 VOL% (42.0-52.0); Hemoglobin 10.2 GM/DL (14.0-18.0); Immature Granulocytes % 0.4 %; Immature Granulocytes Absolute 0.02 #; Lymphocytes # 1.2 10*3/uL (1.4-4.0); Mean Corpuscular HGB Conc 31.3 GM/DL (32-36); Mean Corpuscular Volume 84.9 FL (87-102); Mean Platelet Volume 11.1 FL (9.6-12.0); Monocytes % 6.1 % (1.7-12.7); Neutrophils % 69.8 % (38.7-73.9); Platelet Count 287 T/CUMM (130-400); Red Blood Count 3.84 MC/CUMM (3.8-5.5); Red Cell Distribution Width 15.9 % (9.3-17.3); White Blood Count 5.6 T/CUMM (4-12)
[2020-09-29 05:58] LABS: Calcium 8.7 MG/DL (8.5-10.1); Osmolality,Calculated 279.7 MOS/KG (273-304)
[2020-09-29] MEDS: PANTOPRAZOLE 40 MG TABLET PO SCH (06:15)
[2020-09-29] MEDS ORDERED: FUROSEMIDE 40 MG/4 ML VIAL IV SCH ×2 (09:00→16:00)
[2020-09-29] MEDS ORDERED: AMIODARONE INJ 150 MG in DEXTROSE 5% 100 ML IV ONE (09:07)
[2020-09-29] MEDS: INSULIN LISPRO 100 UNIT/ML SUBCUT SCH ×3 (09:20→16:27)
[2020-09-29] MEDS: FINASTERIDE 5 MG TABLET PO SCH (09:21)
[2020-09-29] MEDS: SACUBITRIL/VALSARTAN 49-51 MG TABLET PO SCH ×2 (09:21→21:12)
[2020-09-29] MEDS: carvediloL 3.125 MG TABLET PO SCH ×2 (09:21→16:24)
[2020-09-29] MEDS: ASCORBIC ACID 500 MG TABLET PO SCH ×2 (09:21→21:12)
[2020-09-29] MEDS: MULTIVITAMIN (BEROCCA) TABLET PO SCH (09:22)
[2020-09-29] MEDS: TAMSULOSIN 0.4 MG CAPSULE PO SCH ×2 (09:23→21:12)
[2020-09-29] MEDS: COENZYME Q10 100 MG CAPSULE PO SCH (09:23)
[2020-09-29] MEDS: OMEGA 3 ACID ETHYL ESTERS 1 GM CAPSULE PO SCH (09:23)
[2020-09-29] MEDS: INVOKANA PO SCH (09:27)
[2020-09-29] MEDS: BENZONATATE 100 MG CAPSULE PO SCH ×3 (09:27→21:12)
[2020-09-29] MEDS ORDERED: AMIODARONE INJ 450 MG in DEXTROSE 5% 241 ML IV SCH (09:30)
[2020-09-29] MEDS: ASPIRIN EC 81 MG TABLET PO SCH (09:53)
[2020-09-29] MEDS: APIXABAN 5 MG TABLET PO SCH ×2 (09:53→21:11)
[2020-09-29] MEDS: AMIODARONE INJ 450 MG in DEXTROSE 5% 241 ML IV SCH (16:25)
[2020-09-29] MEDS: cefTRIAXone 500 MG in SYRINGE 1 EACH IV SCH (16:26)
[2020-09-29] MEDS ORDERED: ONDANSETRON 4 MG/2 ML VIAL IV PRN (16:38)
[2020-09-30] MEDS: INSULIN LISPRO 100 UNIT/ML SUBCUT SCH ×5 (00:01→21:16)
[2020-09-30] MEDS: ALBUTEROL/IPRATROPIUM 3 ML NEB RESP TX SCH ×4 (01:33→20:29)
[2020-09-30] MEDS: PANTOPRAZOLE 40 MG TABLET PO SCH (06:23)
[2020-09-30 06:35] LABS: Basophils % 0.4 % (0.0-0.8); Eosinophils # 0.2 10*3/uL (0.0-0.87); Eosinophils % 2.8 % (0.00-10.9); Hematocrit 32.3 VOL% (42.0-52.0); Hemoglobin 10.6 GM/DL (14.0-18.0); Immature Granulocytes % 0.4 %; Immature Granulocytes Absolute 0.03 #; Lymphocytes # 1.6 10*3/uL (1.4-4.0); Mean Corpuscular HGB Conc 32.8 GM/DL (32-36); Mean Corpuscular Volume 84.1 FL (87-102); Mean Platelet Volume 10.8 FL (9.6-12.0); Monocytes % 8.5 % (1.7-12.7); Neutrophils % 64.9 % (38.7-73.9); Platelet Count 308 T/CUMM (130-400); Red Blood Count 3.84 MC/CUMM (3.8-5.5); Red Cell Distribution Width 15.9 % (9.3-17.3); White Blood Count 6.7 T/CUMM (4-12)
[2020-09-30 07:01] LABS: Calcium 8.4 MG/DL (8.5-10.1); Osmolality,Calculated 283.5 MOS/KG (273-304)
[2020-09-30] MEDS: SACUBITRIL/VALSARTAN 49-51 MG TABLET PO SCH ×2 (09:21→21:15)
[2020-09-30] MEDS: OMEGA 3 ACID ETHYL ESTERS 1 GM CAPSULE PO SCH (09:22)
[2020-09-30] MEDS: MULTIVITAMIN (BEROCCA) TABLET PO SCH (09:22)
[2020-09-30] MEDS: TAMSULOSIN 0.4 MG CAPSULE PO SCH ×2 (09:22→21:16)
[2020-09-30] MEDS: ASPIRIN EC 81 MG TABLET PO SCH (09:22)
[2020-09-30] MEDS: AMIODARONE 200 MG TABLET PO SCH ×2 (09:22→21:15)
[2020-09-30] MEDS: ASCORBIC ACID 500 MG TABLET PO SCH ×2 (09:23→21:16)
[2020-09-30] MEDS: carvediloL 3.125 MG TABLET PO SCH ×2 (09:23→16:36)
[2020-09-30] MEDS: BENZONATATE 100 MG CAPSULE PO SCH ×3 (09:23→21:16)
[2020-09-30] MEDS: COENZYME Q10 100 MG CAPSULE PO SCH (09:23)
[2020-09-30] MEDS: APIXABAN 5 MG TABLET PO SCH ×2 (09:23→21:16)
[2020-09-30] MEDS: FINASTERIDE 5 MG TABLET PO SCH (09:24)
[2020-09-30] MEDS: SPIRONOLACTONE 25 MG TABLET PO SCH (09:24)
[2020-09-30] MEDS: FUROSEMIDE 40 MG TABLET PO SCH ×2 (09:24→15:17)
[2020-09-30] MEDS: INVOKANA PO SCH (09:26)
[2020-09-30] MEDS: AMIODARONE INJ 450 MG in DEXTROSE 5% 241 ML IV SCH (10:45)
[2020-09-30] MEDS: cefTRIAXone 500 MG in SYRINGE 1 EACH IV SCH (15:18)
[2020-10-01] MEDS: ALBUTEROL/IPRATROPIUM 3 ML NEB RESP TX SCH ×4 (02:29→19:39)
[2020-10-01] MEDS: PANTOPRAZOLE 40 MG TABLET PO SCH (06:08)
[2020-10-01 07:04] LABS: Basophils % 0.6 % (0.0-0.8); Eosinophils # 0.2 10*3/uL (0.0-0.87); Eosinophils % 3.2 % (0.00-10.9); Hematocrit 32.4 VOL% (42.0-52.0); Hemoglobin 10.7 GM/DL (14.0-18.0); Immature Granulocytes % 0.5 %; Immature Granulocytes Absolute 0.03 #; Lymphocytes # 1.3 10*3/uL (1.4-4.0); Lymphocytes % 18.9 % (21.2-54.2); Mean Corpuscular Volume 84.2 FL (87-102); Monocytes % 7.7 % (1.7-12.7); Neutrophils % 69.1 % (38.7-73.9); Platelet Count 314 T/CUMM (130-400); Red Blood Count 3.85 MC/CUMM (3.8-5.5); Red Cell Distribution Width 15.9 % (9.3-17.3); White Blood Count 6.6 T/CUMM (4-12)
[2020-10-01 07:27] LABS: Calcium 8.6 MG/DL (8.5-10.1); Osmolality,Calculated 290.3 MOS/KG (273-304)
[2020-10-01] MEDS: ASPIRIN EC 81 MG TABLET PO SCH (08:51)
[2020-10-01] MEDS: BENZONATATE 100 MG CAPSULE PO SCH ×3 (08:51→21:06)
[2020-10-01] MEDS: ASCORBIC ACID 500 MG TABLET PO SCH ×2 (08:51→21:06)
[2020-10-01] MEDS: AMIODARONE 200 MG TABLET PO SCH ×2 (08:52→21:06)
[2020-10-01] MEDS: MULTIVITAMIN (BEROCCA) TABLET PO SCH (08:52)
[2020-10-01] MEDS: COENZYME Q10 100 MG CAPSULE PO SCH (08:52)
[2020-10-01] MEDS: LORATADINE 10 MG TABLET PO SCH (08:53)
[2020-10-01] MEDS: FUROSEMIDE 40 MG TABLET PO SCH ×2 (08:53→16:41)
[2020-10-01] MEDS: SPIRONOLACTONE 25 MG TABLET PO SCH (08:53)
[2020-10-01] MEDS: TAMSULOSIN 0.4 MG CAPSULE PO SCH ×2 (08:54→21:06)
[2020-10-01] MEDS: APIXABAN 5 MG TABLET PO SCH ×2 (08:54→21:06)
[2020-10-01] MEDS: SACUBITRIL/VALSARTAN 49-51 MG TABLET PO SCH ×2 (08:54→21:06)
[2020-10-01] MEDS: OMEGA 3 ACID ETHYL ESTERS 1 GM CAPSULE PO SCH (08:55)
[2020-10-01] MEDS: carvediloL 3.125 MG TABLET PO SCH ×2 (08:56→16:49)
[2020-10-01] MEDS: INSULIN LISPRO 100 UNIT/ML SUBCUT SCH ×4 (08:56→21:07)
[2020-10-01] MEDS: INVOKANA PO SCH (09:13)
[2020-10-01] MEDS: cefTRIAXone 500 MG in SYRINGE 1 EACH IV SCH (16:42)
[2020-10-01] MEDS ORDERED: FINASTERIDE 5 MG TABLET PO SCH (21:00)
[2020-10-02] MEDS: ALBUTEROL/IPRATROPIUM 3 ML NEB RESP TX SCH ×3 (02:10→13:00)
[2020-10-02 05:41] LABS: Basophils % 0.5 % (0.0-0.8); Eosinophils # 0.2 10*3/uL (0.0-0.87); Eosinophils % 3.6 % (0.00-10.9); Hematocrit 31.8 VOL% (42.0-52.0); Hemoglobin 10.3 GM/DL (14.0-18.0); Immature Granulocytes % 0.5 %; Immature Granulocytes Absolute 0.03 #; Lymphocytes # 1.2 10*3/uL (1.4-4.0); Lymphocytes % 21.6 % (21.2-54.2); Mean Corpuscular HGB Conc 32.4 GM/DL (32-36); Mean Platelet Volume 10.6 FL (9.6-12.0); Monocytes % 8.9 % (1.7-12.7); Neutrophils % 64.9 % (38.7-73.9); Platelet Count 288 T/CUMM (130-400); Red Blood Count 3.74 MC/CUMM (3.8-5.5); Red Cell Distribution Width 15.9 % (9.3-17.3); White Blood Count 5.6 T/CUMM (4-12)
[2020-10-02] MEDS: PANTOPRAZOLE 40 MG TABLET PO SCH (05:41)
[2020-10-02] MEDS ORDERED: AMIODARONE 200 MG TABLET PO SCH (09:00)
[2020-10-02] MEDS: SACUBITRIL/VALSARTAN 49-51 MG TABLET PO SCH (09:04)
[2020-10-02] MEDS: OMEGA 3 ACID ETHYL ESTERS 1 GM CAPSULE PO SCH (09:04)
[2020-10-02] MEDS: BENZONATATE 100 MG CAPSULE PO SCH (09:05)
[2020-10-02] MEDS: MULTIVITAMIN (BEROCCA) TABLET PO SCH (09:05)
[2020-10-02] MEDS: COENZYME Q10 100 MG CAPSULE PO SCH (09:05)
[2020-10-02] MEDS: SPIRONOLACTONE 25 MG TABLET PO SCH (09:05)
[2020-10-02] MEDS: NYSTATIN 500,000 UNIT/5 ML UDCUP SWISH/SWAL SCH ×2 (09:05→13:38)
[2020-10-02] MEDS: ASPIRIN EC 81 MG TABLET PO SCH (09:05)
[2020-10-02] MEDS: APIXABAN 5 MG TABLET PO SCH (09:05)
[2020-10-02] MEDS: LORATADINE 10 MG TABLET PO SCH (09:06)
[2020-10-02] MEDS: ASCORBIC ACID 500 MG TABLET PO SCH (09:06)
[2020-10-02] MEDS: carvediloL 3.125 MG TABLET PO SCH (09:06)
[2020-10-02] MEDS: TAMSULOSIN 0.4 MG CAPSULE PO SCH (09:06)
[2020-10-02] MEDS: INVOKANA PO SCH (09:07)
[2020-10-02] MEDS: INSULIN LISPRO 100 UNIT/ML SUBCUT SCH ×2 (09:07→13:09)
[2020-10-02] MEDS: FUROSEMIDE 40 MG TABLET PO SCH (09:15)
[2020-10-02 12:36] VITALS: BP 85/61
== END 2020-10-02 13:35 | disposition home health service (06) | DRG 291 ==
LOC: N.ED 08:22 → N.EDINP 12:40 → N.TELES 14:01
PROVIDERS: ADMIT Internal Medicine; ATTEND Internal Medicine

== ENCOUNTER 2021-09-23 09:21 | Observation (INO) ==
[~2021-09-23 09:21] MED LIST: ACETAMINOPHEN 500 MG TABLET PO ONE; DIAZEPAM 5 MG TABLET PO ONE; FAMOTIDINE 20 MG TABLET PO ONE; GABAPENTIN 400 MG CAPSULE PO ONE; cefTRIAXone 1,000 MG in SODIUM CHLORIDE 0.9% 100 ML IV ONE
[2021-09-23] MEDS ORDERED: LACTATED RINGERS 1,000 ML IV SCH (11:00)
[2021-09-23] MEDS ORDERED: fentaNYL 100 MCG/2 ML VIAL ONE (13:08)
[2021-09-23] MEDS ORDERED: MIDAZOLAM 2 MG/2 ML VIAL ONE (13:08)
[2021-09-23] MEDS ORDERED: ePHEDrine 50 MG/ML VIAL ONE ×2 (13:50→14:29)
[2021-09-23] MEDS ORDERED: LIDOCAINE 2% 5 ML VIAL ONE (14:32)
[2021-09-23] MEDS ORDERED: ONDANSETRON 4 MG/2 ML VIAL ONE (14:32)
[2021-09-23] MEDS ORDERED: propofoL 200 MG/20 ML VIAL IV ONE (14:32)
[2021-09-23] MEDS ORDERED: LACTULOSE 20 GM/30 ML UDCUP PO PRN (17:16)
[2021-09-23] MEDS ORDERED: oxyCODONE/ACETAMINOPHEN 5-325 MG TABLET PO PRN (17:16)
[2021-09-23] MEDS ORDERED: diphenhydrAMINE 50 MG/1 ML VIAL IV PRN (17:16)
[2021-09-23] MEDS ORDERED: SIMETHICONE CHEW 125 MG TABLET PO PRN (17:16)
[2021-09-23] MEDS ORDERED: HYDROmorphone 2 MG/1 ML VIAL IV PRN (17:16)
[2021-09-23] MEDS ORDERED: ONDANSETRON 4 MG/2 ML VIAL IV PRN (17:16)
[2021-09-23] MEDS ORDERED: MAGNESIUM HYDROXIDE SUSP 30 ML UDCUP PO PRN (17:16)
[2021-09-23] MEDS ORDERED: PROMETHAZINE 25 MG/1 ML VIAL IM PRN (17:16)
[2021-09-23] MEDS ORDERED: GLUCAGON 1 MG VIAL IM PRN (17:21)
[2021-09-23] MEDS ORDERED: DEXTROSE 50% 25 GM/50 ML SYRINGE IV PRN (18:29)
[2021-09-23] MEDS: ACETAMINOPHEN 325 MG TABLET PO SCH ×2 (18:49→22:40)
[2021-09-23] MEDS: INSULIN REGULAR 100 UNIT/ML SUBCUT SCH (21:41)
[2021-09-23] MEDS: PRIMIDONE 50 MG TABLET PO SCH (21:42)
[2021-09-23] MEDS: SACUBITRIL/VALSARTAN 49-51 MG TABLET PO SCH (21:42)
[2021-09-23] MEDS: metFORMIN 500 MG TABLET PO SCH (21:42)
[2021-09-23] MEDS: DOCUSATE SODIUM 100 MG CAPSULE PO SCH (21:42)
[2021-09-23] MEDS: OXYBUTYNIN 5 MG TABLET PO SCH (21:42)
[2021-09-23] MEDS: ESCITALOPRAM 10 MG TABLET PO SCH (21:42)
[2021-09-24 05:30] LABS: Basophils % 0.4 % (0.0-0.8); Eosinophils # 0.1 10*3/uL (0.0-0.87); Eosinophils % 2.5 % (0.00-10.9); Hemoglobin 11.4 GM/DL (14.0-18.0); Immature Granulocytes % 0.5 %; Immature Granulocytes Absolute 0.03 #; Lymphocytes # 0.7 10*3/uL (1.4-4.0); Lymphocytes % 12.7 % (21.2-54.2); Mean Corpuscular HGB Conc 31.7 GM/DL (32-36); Mean Corpuscular Volume 90.9 FL (87-102); Mean Platelet Volume 10.7 FL (9.6-12.0); Monocytes % 7.5 % (1.7-12.7); Neutrophils % 76.4 % (38.7-73.9); Platelet Count 199 T/CUMM (130-400); Red Blood Count 3.96 MC/CUMM (3.8-5.5); Red Cell Distribution Width 16.7 % (9.3-17.3); White Blood Count 5.6 T/CUMM (4-12)
[2021-09-24 05:56] LABS: Calcium 8.4 MG/DL (8.5-10.1); Osmolality,Calculated 283.3 MOS/KG (273-304); Potassium 4.4 MMOL/L (3.5-5.1)
[2021-09-24] MEDS: ACETAMINOPHEN 325 MG TABLET PO SCH ×3 (07:22→16:40)
[2021-09-24] MEDS: INSULIN REGULAR 100 UNIT/ML SUBCUT SCH ×4 (07:41→22:02)
[2021-09-24] MEDS: metFORMIN 500 MG TABLET PO SCH ×2 (09:09→20:53)
[2021-09-24] MEDS: OXYBUTYNIN 5 MG TABLET PO SCH ×3 (09:09→20:53)
[2021-09-24] MEDS: SACUBITRIL/VALSARTAN 49-51 MG TABLET PO SCH ×2 (09:09→20:53)
[2021-09-24] MEDS: FINASTERIDE 5 MG TABLET PO SCH (09:09)
[2021-09-24] MEDS: carvediloL 3.125 MG TABLET PO SCH ×2 (09:09→16:40)
[2021-09-24] MEDS: DOCUSATE SODIUM 100 MG CAPSULE PO SCH ×2 (09:09→20:53)
[2021-09-24] MEDS: AMIODARONE 200 MG TABLET PO SCH (09:09)
[2021-09-24] MEDS: SPIRONOLACTONE 25 MG TABLET PO SCH (09:09)
[2021-09-24] MEDS ORDERED: cefTRIAXone 1,000 MG in SODIUM CHLORIDE 0.9% 100 ML IV SCH (12:00)
[2021-09-24] MEDS: PRIMIDONE 50 MG TABLET PO SCH (20:52)
[2021-09-24] MEDS: ESCITALOPRAM 10 MG TABLET PO SCH (20:53)
[2021-09-25] MEDS: ACETAMINOPHEN 325 MG TABLET PO SCH ×3 (01:32→12:26)
[2021-09-25] MEDS: INSULIN REGULAR 100 UNIT/ML SUBCUT SCH ×2 (07:20→12:26)
[2021-09-25] MEDS: metFORMIN 500 MG TABLET PO SCH (08:53)
[2021-09-25] MEDS: SACUBITRIL/VALSARTAN 49-51 MG TABLET PO SCH (08:53)
[2021-09-25] MEDS: AMIODARONE 200 MG TABLET PO SCH (08:53)
[2021-09-25] MEDS: carvediloL 3.125 MG TABLET PO SCH (08:53)
[2021-09-25] MEDS: SPIRONOLACTONE 25 MG TABLET PO SCH (08:53)
[2021-09-25] MEDS: OXYBUTYNIN 5 MG TABLET PO SCH (08:53)
[2021-09-25] MEDS: FINASTERIDE 5 MG TABLET PO SCH (08:53)
[2021-09-25] MEDS: DOCUSATE SODIUM 100 MG CAPSULE PO SCH (08:53)
[2021-09-25 11:31] VITALS: BP 138/65
== END 2021-09-25 13:10 | disposition home or self-care (01) ==
LOC: N.3E 09:21 → N.OR 09:21 → N.SDSINP 09:22 → N.3E 17:58
PROVIDERS: ADMIT Surgery; ATTEND Surgery

== ENCOUNTER 2021-10-08 09:37 | Observation (INO) ==
[~2021-10-08 09:37] MED LIST changes: -ACETAMINOPHEN 500 MG TABLET PO ONE; -DIAZEPAM 5 MG TABLET PO ONE; -FAMOTIDINE 20 MG TABLET PO ONE; -GABAPENTIN 400 MG CAPSULE PO ONE
[2021-10-08 10:17] LABS: Basophils % 0.4 % (0.0-0.8); Eosinophils # 0.2 10*3/uL (0.0-0.87); Eosinophils % 3.4 % (0.00-10.9); Hematocrit 35.6 VOL% (42.0-52.0); Hemoglobin 11.6 GM/DL (14.0-18.0); Immature Granulocytes % 0.6 %; Immature Granulocytes Absolute 0.04 #; Lymphocytes # 1.2 10*3/uL (1.4-4.0); Lymphocytes % 17.6 % (21.2-54.2); Mean Corpuscular HGB Conc 32.6 GM/DL (32-36); Mean Platelet Volume 9.9 FL (9.6-12.0); Monocytes % 6.9 % (1.7-12.7); Neutrophils % 71.1 % (38.7-73.9); Platelet Count 245 T/CUMM (130-400); Red Cell Distribution Width 15.9 % (9.3-17.3); White Blood Count 6.7 T/CUMM (4-12)
[2021-10-08 10:32] LABS: Calcium 9.1 MG/DL (8.5-10.1); Osmolality,Calculated 277.7 MOS/KG (273-304); Potassium 4.2 MMOL/L (3.5-5.1)
[2021-10-08] MEDS ORDERED: DIAZEPAM 5 MG TABLET PO ONE (10:38)
[2021-10-08] MEDS ORDERED: ACETAMINOPHEN 500 MG TABLET PO ONE (10:38)
[2021-10-08] MEDS ORDERED: GABAPENTIN 400 MG CAPSULE PO ONE (10:38)
[2021-10-08] MEDS ORDERED: FAMOTIDINE 20 MG TABLET PO ONE (10:38)
[2021-10-08] MEDS: LACTATED RINGERS 1,000 ML IV SCH ×2 (11:00→16:00)
[2021-10-08] MEDS ORDERED: NEOMYCIN/POLYMYXIN IRRIG SOLN 1 ML AMP BLADDERIRR ONE (14:43)
[2021-10-08] MEDS ORDERED: propofoL 200 MG/20 ML VIAL IV ONE (14:55)
[2021-10-08] MEDS ORDERED: PHENYLEPHRINE 1 MG/10 ML SYRINGE IV ONE ×3 (14:55→15:42)
[2021-10-08] MEDS ORDERED: MIDAZOLAM 2 MG/2 ML VIAL ONE (14:55)
[2021-10-08] MEDS ORDERED: SUCCINYLCHOLINE 200 MG/10 ML VIAL ONE (14:55)
[2021-10-08] MEDS ORDERED: LIDOCAINE 2% 5 ML VIAL ONE (14:55)
[2021-10-08] MEDS ORDERED: ROCURONIUM 50 MG/5 ML VIAL IV ONE (14:55)
[2021-10-08] MEDS ORDERED: fentaNYL 100 MCG/2 ML VIAL ONE (14:56)
[2021-10-08] MEDS ORDERED: ePHEDrine 50 MG/ML VIAL ONE (15:08)
[2021-10-08] MEDS ORDERED: GLYCOPYRROLATE 0.4 MG/2 ML VIAL ONE (15:28)
[2021-10-08] MEDS ORDERED: LACTATED RINGERS 1,000 ML IV ONE (15:44)
[2021-10-08] MEDS ORDERED: PROMETHAZINE 25 MG/1 ML VIAL IM PRN (16:06)
[2021-10-08] MEDS ORDERED: CALCIUM CARBONATE CHEW 500 MG TABLET PO PRN (16:06)
[2021-10-08] MEDS ORDERED: HYDROmorphone 2 MG/1 ML VIAL IV PRN (16:06)
[2021-10-08] MEDS ORDERED: ONDANSETRON 4 MG/2 ML VIAL IV PRN (16:06)
[2021-10-08] MEDS ORDERED: ACETAMINOPHEN 325 MG TABLET PO PRN (16:06)
[2021-10-08] MEDS ORDERED: diphenhydrAMINE 50 MG/1 ML VIAL IV PRN (16:06)
[2021-10-08] MEDS ORDERED: SIMETHICONE CHEW 125 MG TABLET PO PRN (16:06)
[2021-10-08] MEDS ORDERED: oxyCODONE/ACETAMINOPHEN 5-325 MG TABLET PO PRN (16:06)
[2021-10-08] MEDS: metFORMIN 500 MG TABLET PO SCH (21:31)
[2021-10-08] MEDS: SACUBITRIL/VALSARTAN 49-51 MG TABLET PO SCH (21:31)
[2021-10-08] MEDS: carvediloL 3.125 MG TABLET PO SCH (21:31)
[2021-10-08] MEDS: OXYBUTYNIN 5 MG TABLET PO SCH (21:31)
[2021-10-08] MEDS: COENZYME Q10 100 MG CAPSULE PO SCH (21:32)
[2021-10-08] MEDS: TAMSULOSIN 0.4 MG CAPSULE PO SCH (21:32)
[2021-10-08] MEDS: PRIMIDONE 50 MG TABLET PO SCH (21:32)
[2021-10-08] MEDS: ESCITALOPRAM 10 MG TABLET PO SCH (21:32)
[2021-10-09 05:43] LABS: Basophils % 0.4 % (0.0-0.8); Eosinophils # 0.2 10*3/uL (0.0-0.87); Eosinophils % 2.5 % (0.00-10.9); Hematocrit 37.4 VOL% (42.0-52.0); Hemoglobin 12.4 GM/DL (14.0-18.0); Immature Granulocytes % 0.5 %; Immature Granulocytes Absolute 0.04 #; Lymphocytes # 0.8 10*3/uL (1.4-4.0); Mean Corpuscular HGB Conc 33.2 GM/DL (32-36); Mean Corpuscular Volume 89.3 FL (87-102); Mean Platelet Volume 10.3 FL (9.6-12.0); Monocytes % 7.2 % (1.7-12.7); Neutrophils % 79.4 % (38.7-73.9); Platelet Count 243 T/CUMM (130-400); Red Blood Count 4.19 MC/CUMM (3.8-5.5); Red Cell Distribution Width 15.9 % (9.3-17.3)
[2021-10-09 05:57] LABS: Calcium 8.7 MG/DL (8.5-10.1); Osmolality,Calculated 275.7 MOS/KG (273-304); Potassium 3.8 MMOL/L (3.5-5.1)
[2021-10-09] MEDS ORDERED: cefTRIAXone 1,000 MG in SODIUM CHLORIDE 0.9% 100 ML IV SCH (09:30)
[2021-10-09] MEDS: FINASTERIDE 5 MG TABLET PO SCH (10:03)
[2021-10-09] MEDS: TAMSULOSIN 0.4 MG CAPSULE PO SCH ×2 (10:04→20:43)
[2021-10-09] MEDS: AMIODARONE 200 MG TABLET PO SCH (10:06)
[2021-10-09] MEDS: SACUBITRIL/VALSARTAN 49-51 MG TABLET PO SCH ×2 (10:06→20:43)
[2021-10-09] MEDS: metFORMIN 500 MG TABLET PO SCH ×2 (10:07→20:43)
[2021-10-09] MEDS: SPIRONOLACTONE 25 MG TABLET PO SCH (10:08)
[2021-10-09] MEDS: OXYBUTYNIN 5 MG TABLET PO SCH ×3 (10:08→20:44)
[2021-10-09] MEDS: carvediloL 3.125 MG TABLET PO SCH ×2 (10:08→17:44)
[2021-10-09] MEDS: ASPIRIN EC 81 MG TABLET PO SCH (10:09)
[2021-10-09] MEDS: COENZYME Q10 100 MG CAPSULE PO SCH (20:43)
[2021-10-09] MEDS: PRIMIDONE 50 MG TABLET PO SCH (20:44)
[2021-10-09] MEDS: ESCITALOPRAM 10 MG TABLET PO SCH (20:44)
[2021-10-10 05:06] VITALS: BP 124/65
[2021-10-10 05:56] LABS: Basophils % 0.4 % (0.0-0.8); Eosinophils # 0.2 10*3/uL (0.0-0.87); Hematocrit 35.9 VOL% (42.0-52.0); Hemoglobin 11.7 GM/DL (14.0-18.0); Immature Granulocytes % 0.4 %; Immature Granulocytes Absolute 0.03 #; Lymphocytes # 0.9 10*3/uL (1.4-4.0); Lymphocytes % 12.3 % (21.2-54.2); Mean Corpuscular HGB Conc 32.6 GM/DL (32-36); Mean Corpuscular Volume 88.9 FL (87-102); Mean Platelet Volume 10.4 FL (9.6-12.0); Monocytes % 7.8 % (1.7-12.7); Neutrophils % 76.1 % (38.7-73.9); Platelet Count 224 T/CUMM (130-400); Red Blood Count 4.04 MC/CUMM (3.8-5.5); Red Cell Distribution Width 15.7 % (9.3-17.3); White Blood Count 7.3 T/CUMM (4-12)
[2021-10-10 06:24] LABS: Calcium 8.4 MG/DL (8.5-10.1); Osmolality,Calculated 281.5 MOS/KG (273-304); Potassium 3.9 MMOL/L (3.5-5.1)
[2021-10-10] MEDS: TAMSULOSIN 0.4 MG CAPSULE PO SCH (08:08)
[2021-10-10] MEDS: OXYBUTYNIN 5 MG TABLET PO SCH (08:08)
[2021-10-10] MEDS: SPIRONOLACTONE 25 MG TABLET PO SCH (08:08)
[2021-10-10] MEDS: SACUBITRIL/VALSARTAN 49-51 MG TABLET PO SCH (08:09)
[2021-10-10] MEDS: carvediloL 3.125 MG TABLET PO SCH (08:09)
[2021-10-10] MEDS: FINASTERIDE 5 MG TABLET PO SCH (08:09)
[2021-10-10] MEDS: ASPIRIN EC 81 MG TABLET PO SCH (08:09)
[2021-10-10] MEDS: AMIODARONE 200 MG TABLET PO SCH (08:09)
[2021-10-10] MEDS: metFORMIN 500 MG TABLET PO SCH (08:09)
== END 2021-10-10 11:28 | disposition home or self-care (01) ==
LOC: N.OR 09:37 → N.3E 09:37 → N.SDSINP 09:38 → N.3E 17:28
PROVIDERS: ADMIT Surgery; ATTEND Surgery

== ENCOUNTER 2021-10-30 09:01 | Observation (INO) ==
[2021-10-30] MEDS ORDERED: diphenhydrAMINE 50 MG/1 ML VIAL IV PRN ×2 (09:06→15:59)
[2021-10-30] MEDS ORDERED: HYDROmorphone 2 MG/1 ML VIAL IV PRN ×2 (09:06→15:59)
[2021-10-30] MEDS ORDERED: oxyCODONE/ACETAMINOPHEN 5-325 MG TABLET PO PRN (09:06)
[2021-10-30] MEDS ORDERED: ACETAMINOPHEN 325 MG TABLET PO PRN (09:06)
[2021-10-30] MEDS ORDERED: OXYBUTYNIN 5 MG TABLET PO PRN ×2 (09:06→16:32)
[2021-10-30] MEDS ORDERED: PROMETHAZINE 25 MG/1 ML VIAL IM PRN (09:06)
[2021-10-30] MEDS ORDERED: ONDANSETRON 4 MG/2 ML VIAL IV PRN ×2 (09:06→15:59)
[2021-10-30] MEDS ORDERED: SODIUM CHLORIDE 0.9% 1,000 ML IV SCH (09:30)
[2021-10-30] MEDS: cefTRIAXone 1,000 MG in SODIUM CHLORIDE 0.9% 100 ML IV SCH (10:38)
[2021-10-30 11:04] LABS: Basophils % 0.4 % (0.0-0.8); Eosinophils # 0.2 10*3/uL (0.0-0.87); Eosinophils % 2.5 % (0.00-10.9); Hematocrit 28.2 VOL% (42.0-52.0); Hemoglobin 9.3 GM/DL (14.0-18.0); Immature Granulocytes % 0.3 %; Immature Granulocytes Absolute 0.02 #; Lymphocytes # 1.1 10*3/uL (1.4-4.0); Lymphocytes % 15.4 % (21.2-54.2); Mean Corpuscular Volume 88.4 FL (87-102); Mean Platelet Volume 9.8 FL (9.6-12.0); Monocytes % 7.1 % (1.7-12.7); Neutrophils % 74.3 % (38.7-73.9); Platelet Count 231 T/CUMM (130-400); Red Blood Count 3.19 MC/CUMM (3.8-5.5); Red Cell Distribution Width 15.5 % (9.3-17.3); White Blood Count 7.1 T/CUMM (4-12)
[2021-10-30 11:22] LABS: Calcium 8.7 MG/DL (8.5-10.1); Osmolality,Calculated 283.1 MOS/KG (273-304); Potassium 4.2 MMOL/L (3.5-5.1)
[2021-10-30] MEDS ORDERED: GLYCOPYRROLATE 0.4 MG/2 ML VIAL ONE (15:55)
[2021-10-30] MEDS ORDERED: fentaNYL 100 MCG/2 ML VIAL ONE (15:57)
[2021-10-30] MEDS ORDERED: PROMETHAZINE INJ 25 MG in SODIUM CHLORIDE 0.9% 50 ML IV PRN (15:59)
[2021-10-30] MEDS ORDERED: MEPERIDINE 50 MG/1 ML VIAL IV PRN (16:04)
[2021-10-30] MEDS ORDERED: ETOMIDATE 40 MG/20 ML VIAL IV ONE (16:08)
[2021-10-30] MEDS ORDERED: SEVOFLURANE 1 UNIT/15 MINUTE INH ONE (16:08)
[2021-10-30] MEDS ORDERED: propofoL 200 MG/20 ML VIAL IV ONE (16:08)
[2021-10-30] MEDS ORDERED: PHENYLEPHRINE 1 MG/10 ML SYRINGE IV ONE ×2 (16:08→16:22)
[2021-10-30] MEDS ORDERED: LIDOCAINE 2% 5 ML VIAL ONE (16:08)
[2021-10-30] MEDS ORDERED: ceFAZolin 1,000 MG VIAL ONE (16:10)
[2021-10-30] MEDS ORDERED: LIDOCAINE 2% TOP JELLY 20 ML VIAL INTRAURETH ONE (16:22)
[2021-10-30] MEDS ORDERED: SPIRONOLACTONE 25 MG TABLET PO PRN (16:32)
[2021-10-30] MEDS ORDERED: DOCUSATE SODIUM 100 MG CAPSULE PO PRN (16:32)
[2021-10-30] MEDS ORDERED: DEXTROSE 10% 250 ML BAG IV PRN (16:54)
[2021-10-30] MEDS ORDERED: GLUCAGON 1 MG VIAL IM PRN (16:54)
[2021-10-30] MEDS ORDERED: GLIPIZIDE 10 MG PO SCH (21:00)
[2021-10-30] MEDS ORDERED: ESCITALOPRAM 10 MG TABLET PO SCH (21:00)
[2021-10-30] MEDS ORDERED: glipiZIDE 10 MG TABLET PO SCH (21:00)
[2021-10-30] MEDS ORDERED: metFORMIN 500 MG TABLET PO SCH (21:00)
[2021-10-30] MEDS: TAMSULOSIN 0.4 MG CAPSULE PO SCH (21:57)
[2021-10-30] MEDS: SACUBITRIL/VALSARTAN 49-51 MG TABLET PO SCH (21:57)
[2021-10-30] MEDS: INSULIN REGULAR 100 UNIT/ML SUBCUT SCH (22:01)
[2021-10-30] MEDS: carvediloL 3.125 MG TABLET PO SCH (22:02)
[2021-10-31] MEDS ORDERED: metFORMIN 500 MG TABLET PO SCH (08:00)
[2021-10-31] MEDS: TAMSULOSIN 0.4 MG CAPSULE PO SCH (08:57)
[2021-10-31] MEDS: carvediloL 3.125 MG TABLET PO SCH (08:59)
[2021-10-31] MEDS ORDERED: NYSTATIN CREAM 15 GM TUBE TOP SCH (09:00)
[2021-10-31] MEDS ORDERED: FINASTERIDE 5 MG TABLET PO SCH (09:00)
[2021-10-31] MEDS ORDERED: CITALOPRAM 20 MG TABLET PO SCH (09:00)
[2021-10-31] MEDS ORDERED: SILVER SULFADIAZINE 1% CREAM 25 GM TUBE TOP SCH (09:00)
[2021-10-31] MEDS ORDERED: AMIODARONE 200 MG TABLET PO SCH (09:00)
[2021-10-31] MEDS ORDERED: ASPIRIN CHEW 81 MG TABLET PO SCH (09:00)
[2021-10-31] MEDS: cefTRIAXone 1,000 MG in SODIUM CHLORIDE 0.9% 100 ML IV SCH (09:08)
[2021-10-31] MEDS: INSULIN REGULAR 100 UNIT/ML SUBCUT SCH (11:03)
[2021-10-31] MEDS: SACUBITRIL/VALSARTAN 49-51 MG TABLET PO SCH (11:15)
[2021-10-31 12:31] VITALS: BP 114/60
== END 2021-10-31 13:24 | disposition home health service (06) ==
LOC: N.5E
PROVIDERS: ADMIT Surgery; ATTEND Surgery